=== PATIENT | female | born 1950 | race Caucasian/White ===

== ENCOUNTER 2019-08-02 09:14 | Outpatient (CLI) | payer MEDICARE, OTHER, SELFPAY ==
--- NOTE | 2019-08-02 09:22 | MM_ITS ---
WS: [id number] BILATERAL DIGITAL SCREENING MAMMOGRAPHY WITH CAD CLINICAL INFORMATION: SCREENING HISTORY: Screening mammogram. No current complaints. COMPARISON: April 29, 2018 TECHNIQUE: Bilateral CC and MLO views. FINDINGS: Scattered fibroglandular densities bilaterally. No suspicious focal mass, asymmetry, calcifications, or architectural distortion. No evidence of malignancy. Stable intramammary lymph nodes upper outer r ight breast. MM/[place] [id number] IMPRESSION: BI-RADS: 2-Benign FOLLOW UP: 1 Year Follow-up Recommend return to annual screening mammography.
== END 2019-08-02 09:15 | disposition home or self-care (01) ==
LOC: RADSHAW 09:16
PROVIDERS: PCP Electrodiagnostic Medicine; Visit Provider Electrodiagnostic Medicine
DX: Z12.31 Encounter for screening mammogram for malignant neoplasm of breast (principal)
CPT/HCPCS: 77067

== ENCOUNTER 2019-08-19 13:17 | Outpatient (CLI) | payer MEDICARE, OTHER, SELFPAY ==
--- NOTE | 2019-08-19 13:25 | XRR_ITS ---
PROCEDURE INFORMATION: Exam: XR Left Foot Complete Exam date and time: 08/19/2019 1:35 PM Age: 69 years old Clinical indication: Pain; Foot; Left; Additional info: Pain in joint involving ankle and foot TECHNIQUE: Imaging protocol: XR Left foot. Views: 3 or more views. COMPARISON: CR Foot 3 views, LEFT* [id number] 01/01/2016 1:31 PM FINDINGS: Bones/joints: There is a chronic healed fracture deformity proximal shaft 5th metatarsal. The examination is otherwise negative for bone abnormality. Soft tissues: Soft tissue edema is seen in the dorsal aspect of the left foot. XR/XR foot LT min 3V* [id number] IMPRESSION: 1. Healed fracture deformity 5th metatarsal 2. Soft tissue edema dorsal foot 3. Otherwise No acute findings.
== END 2019-08-19 13:18 | disposition home or self-care (01) ==
LOC: RADWPI 13:21
PROVIDERS: Family Provider Electrodiagnostic Medicine; PCP Electrodiagnostic Medicine; Visit Provider Electrodiagnostic Medicine
DX: M25.572 Pain in left ankle and joints of left foot (principal); M79.672 Pain in left foot; Z87.81 Personal history of (healed) traumatic fracture; R60.9 Edema, unspecified
CPT/HCPCS: 73630

== ENCOUNTER 2019-12-21 11:52 | Outpatient (CLI) | payer MEDICARE, OTHER, SELFPAY ==
--- NOTE | 2019-12-21 12:00 | CT_ITS ---
WS: [id number] CT scan of the abdomen and pelvis with Oral and IV contrast. Additional two-dimensional coronal and s agittal reconstruction was performed. 12/21/2019 Clinical Data: DIARRHEA Comparison: CT abdomen and pelvis, 09/03/2006. DLP: 1122.[address] scans at [facility] use at least one of these dose optimization techniques: automat ed exposure control; mA and/or kV adjustment per patient size (includes targeted exams where dose is matched to clinical indication); or iterative reconstruction. Findings: The lower lungs show no nodules, masses or effusions. The liver, spleen, adrenal glands and pancreas are normal. There is a small cyst in the anterior asp ect of the left lobe unchanged. There are clips in the gallbladder fossa from cholecystectomy. There is a probable cholecystectomy clip seen in the right anterior abdomen which is unchanged from 13 year s ago. The kidneys show equal bilateral contrast excretion with 2 small right renal cortical cyst but none o n the left. No renal masses, cysts or hydronephrosis can be seen. The abdominal aorta is normal in si ze. No appendicitis or diverticulitis is seen. Oral contrast is in the stomach, small bowel and colon, an d there is no bowel dilatation. No abscess, adenopathy, ascites, mass, obstruction or free air is see n. The bladder is unremarkable. The uterus is absent. No inguinal hernia is seen. The bones of the lower thorax, lumbar spine, pelvis, and hips show osteoarthritic change and degenera tive disc disease in the mid lumbar spine.. CT/CT abdomen pelvis w con* [id number] Impression: Negative for acute intra-abdominal or pelvic abnormalities.
[2019-12-21] MEDS: iohexol 300 mg/mL 50 mL Btl PO (12:22)
[2019-12-21] MEDS: iohexol 300 mg/mL 100 mL Btl IV (13:54)
== END 2019-12-21 11:53 | disposition home or self-care (01) ==
LOC: RADWPI 11:56
PROVIDERS: PCP Electrodiagnostic Medicine; Visit Provider Electrodiagnostic Medicine
DX: R19.7 Diarrhea, unspecified (principal); M06.9 Rheumatoid arthritis, unspecified; E03.9 Hypothyroidism, unspecified; M81.0 Age-related osteoporosis without current pathological fracture
CPT/HCPCS: 74177; Q9967

== ENCOUNTER 2019-12-28 10:20 | Emergency (ER) | payer MEDICARE, OTHER, SELFPAY ==
[2019-12-28 10:28] VITALS: BP 137/85; PULSE 100; RESP 18; TEMP 36.2; O2SAT 98; BMI 25.9
--- NOTE | 2019-12-28 10:41 | W.ED.NAVMDI ---
HPI - Nausea/Vomiting/Diarrhea General: Chief complaint: Nausea/Vomiting/Diarrhea Stated complaint: CONSTANT DIARRHEA, WEAK Time Seen by Provider: 12/28/19 10:28 History of Present Illness: HPI Narrative: Patient is a 69-year-old female comes to the ED with diarrhea, fatigue and generalized weakness. Patient says she has been having constant diarrhea for the past 2 weeks. She says that she goes almost every hour. Stool is described as sometimes yellow or brown and liquidy. Denies any red blood or black stools. Patient says she was having diarrhea back in October as well and it lasted all the way till the end of November. She says she had a week of normal stools and now for the past 2 weeks she is having diarrhea again. She has not been taking any antibiotics recently. She is seeing her PCP multiple times and they are unable to determine what is going on. CT of abdomen was performed on December 20 and it showed no acute findings. She says whenever she eats or drinks anything it goes right through her. She has not been eating and drinking as much due to the diarrhea. Denies any fever, chills, acid reflux, nausea, vomiting, abdominal pain, dysuria or hematuria. Patient has taken Imodium and that has not helped symptoms. She says she just feels fatigued full body weakness. She says she has lost approximately 14 pounds since October. Associated nausea: No Associated symtoms: Reports fatigue; Denies change in vision, chest pain, dysuria, headache(s), nausea or palpitations Review of Systems Const: Reports: change in weight (Lost 14 pounds since October), fatigue and other (Generalized weakness); Denies: fever(s) or chills Eyes: Denies: change in vision or eye discomfort ENMT: Denies: throat pain, odynophagia, nasal discharge or nasal congestion Card: Denies: chest pain, palpitations, edema, swelling of feet/ankles, dyspnea on exertion or orthopnea Resp: Denies: dyspnea, productive cough or non-productive cough GI: Reports: diarrhea; Denies: abdominal pain, nausea, vomiting, constipation or hematochezia : Denies: flank pain, dysuria or hematuria Musc: Denies: neck pain, back pain or extremity swelling Skin/Breast: Denies: rash or new lesions Neuro: Denies: headache(s), numbness in extremities or weakness in extremities Physical Exam Const: COMMON NORMALS: no acute distress, patient oriented x3 and alert GENERAL APPEARANCE: cooperative and comfortable HENMT: COMMON NORMALS: normocephalic HEAD & SCALP: normocephalic MOUTH: Normal oral and palatal mucosa present THROAT: posterior oropharynx normal and uvula midline Eye: COMMON NORMALS: Equal, round and reactive pupils present PUPIL: Yes Equal, round and reactive pupils present Neck/C-Spine: COMMON NORMALS: supple GENERAL: Yes normal visual inspection Resp: COMMON NORMALS: normal respiratory effort, No retractions, No use of accessory muscles and clear to auscultation bilaterally AUSCULTATION: clear to auscultation bilaterally Cardio: COMMON NORMALS: regular rate, regular rhythm, S1 normal heart sound present, S2 normal heart sound present, No gallops present (Cardio), No clicks present (Cardio), No murmurs present (Cardio) and Peripheral pulses 2+ throughout RATE: regular rate RHYTHM: regular rhythm HEART SOUNDS: S1 normal heart sound present and S2 normal heart sound present PERIPHERAL PULSES: Peripheral pulses 2+ throughout GI: COMMON NORMALS: Normal to inspection, nondistended, normoactive bowel sounds present, Soft to palpation, non-tender and no masses PALPATION: Yes Soft to palpation : COMMON NORMALS: Yes no CVA tenderness BLADDER/KIDNEY EXAM: Yes no CVA tenderness Back/Pelvis: COMMON NORMALS: no CVA tenderness Extremity: COMMON NORMALS: normal to inspection and no pedal edema Neuro: COMMON NORMALS: patient oriented x3 and moves all extremities SENSORIUM/ORIENTATION: Yes alert Skin: GENERAL SKIN EXAM: dry skin Course Reevaluation(s): Reevaluation #1: After patient received IV fluids and IV potassium she stated she was feeling a lot better had more energy. Vital Signs: Vital signs: Vital Signs Temperature 97.2 F L 12/28/19 10:28 Pulse Rate 113 H 12/28/19 14:50 Respiratory Rate 18 12/28/19 14:50 Blood Pressure 123/73 12/28/19 14:50 Pulse Oximetry 94 12/28/19 14:50 MDM - Nausea/Vomiting/Diarrhea MDM Narrative: Medical decision making narrative: Patient is a 69-year-old female who comes to the ED with diarrhea and fatigue. Symptoms started back in October. She seen her PCP multiple times for this and currently PCP has patient set up to see GI specialist. Here in the ED labs were performed patient had a potassium of 2.9. EKG showed normal sinus rhythm, [address] segment elevation or depression seen. Patient left a stool sample and stool Hemoccult test was positive and lactoferrin test positive. C. difficile, parasite and enteric panel pending. She was given IV fluids and IV potassium and her fatigue symptoms improved. I contacted lab and they told me the results for the pending tests were going to take up to 24 hours. Patient was discharged and put on Flagyl and Medrol Dosepak. She was told to follow-up with her PCP in 5 to 7 days to get her potassium level rechecked. Go to her GI specialist appointment as scheduled. Return to ED precautions given. I told her that [facility] [place] call with lab results. Patient understood and agreed with plan. Lab Data: Attestation: I reviewed the patient's lab results. Labs: Lab Results 12/28/19 12/28/19 12/28/19 Range/Units 10:49 10:49 11:40 WBC 9.4 (4.0-10.0) 10^3/ uL RBC 4.67 (4.1-5.3) 10^6/u L Hgb 13.3 (11.5-15.3) g/dL Hct 40.4 (37.0-47.0) % MCV 86.5 (81-99) fL MCH 28.5 (28.0-34.0) pg MCHC 32.9 (30.0-36.0) g/dL RDW 13.2 (12.1-15.1) % Plt Count 232 (130-400) 10^3/c mm MPV 10.0 (7.4-10.4) fL Neut % (Auto) 55.1 % Lymph % (Auto) 28.8 % [place] % (Auto) 12.5 % Eos % (Auto) 2.5 % Baso % (Auto) 0.9 % Neut # (Auto) 5.16 (1.8-7.7) 10^3/u L Lymph # (Auto) 2.7 (0.8-4.8) 10^3/u L [place] # (Auto) 1.2 H (0.2-0.9) 10^3/u L Eos # (Auto) 0.2 (0.0-0.8) 10^3/u L Baso # (Auto) 0.1 (0.0-0.1) 10^3/u L Nucleated RBC % (a uto) 0 % Nucleated RBCs # 0.0 /100WBC Sodium 133 L (136-145) mmol/L Potassium 2.9 L (3.5-5.1) mmol/L Chloride 95 L (98-107) mmol/L Carbon Dioxide 23 (22-29) mmol/L Anion Gap 17.9 (5-19) BUN 7 L (8-23) mg/dL Creatinine 0.8 (0.5-0.9) mg/dL GFR Calculation Not Reportable Glucose 102 (65-115) mg/dL Calculated Osmolal ity 274 L (285-295) mOsm/k g Calcium 10.2 (8.5-10.5) mg/dL Total Bilirubin 0.5 (0.15-1.2) mg/dL AST 20 (0-32) U/L ALT 13 (0-33) U/L Alkaline Phosphata se 84 (35-105) IU/L Total Protein 6.5 L (6.6-8.7) g/dL Albumin 3.7 (3.5-5.2) g/dL Globulin 2.8 (1.3-4.6) g/dL Lipase 37 (13-60) U/L Urine Color Yellow (Yellow) Urine Appearance Sl hazy (CLEAR) Urine pH 5 (5-7) Ur Specific Gravit y 1.010 (1.005-1.030) Urine Protein 1+ H (Negative) Urine Glucose (UA) Norm (Normal) Urine Ketones Negative (Negative) Urine Blood Neg (Negative) Urine Nitrate Negative (Negative) Urine Bilirubin Neg (Negative) Urine Urobilinogen Neg (Negative) mg/dL Ur Leukocyte Tayler ase 1+ H (Negative) Urine RBC None (0-2) /hpf Urine WBC 15-25 H (0-5) /hpf Ur Squamous Epith Cells 10-15 H (0-5) /hpf Amorphous Sediment Not Reportable Urine Bacteria 2+ H (NONE) /hpf Hyaline Casts 0-4 H /lpf Urine Mucus 2+ /hpf EKG Data^: EKG 1: Attestation: I personally reviewed and interpreted this EKG as follows: EKG interpretation date: 12/28/19 Interpretation: Normal sinus rhythm, 84 bpm, no ST segment elevation or depression seen. Flattened T waves present. Discharge Plan Discharge Patient Disposition: Home Clinical Impression: Gastroenteritis Diarrhea Qualifiers: Diarrhea type: presumed infectious Qualified Code(s): R19.7 - Diarrhea, unspecified Condition: Stable Prescriptions: New Flagyl 500 mg tablet 500 mg PO TID 10 Days Qty: 30 RF: 0 ondansetron 4 mg tablet,disintegrating 4 mg PO Q8H Qty: 10 RF: 0 Medrol (Kenny) 4 mg tablets,dose pack See Rx Instructions .ROUTE .COMPLEX Qty: 21 RF: 0 No Action leflunomide 20 mg tablet 20 mg PO DAILY Qty: 30 RF: 2 alendronate 70 mg tablet 70 mg PO .once weekly Qty: 4 RF: 11 levothyroxine 25 mcg tablet 25 mcg PO DAILY RF: 0 lisinopril 10 mg tablet 10 mg PO DAILY RF: 0 Humira Pen 40 mg/0.8 mL pen injector kit 40 mg SUBCUT Q14D RF: 0 multivitamin Tablet 1 tab PO DAILY RF: 0 amlodipine 5 mg tablet 5 mg PO DAILY RF: 0 Discharge Orders: Discharge Order (Routine); Ordered 12/28/19 Ordered By: Alexey Machuca Referrals: Jamal Lay DO [Primary Care Provider] - Discharge Diet: Regular Discharge Activity: Increase activity as tolerated Patient Instructions: Diarrhea - Adult Activity Restrictions/Additional Instructions: Follow-up with medical provider as directed in 5 to 7 days. White blood cell count 9.4 and hemoglobin 13.3 potassium 2.9 and you were given IV potassium while here in the ED. Have potassium levels checked at next appointment. It stool lactoferrin was positive, occult stool blood test positive, stool C. difficile lab pending, parasite and bacterial stool panel lab pending as well. All results should be back tomorrow. Lab will notify you of any positive results. Take medications as prescribed. Return to the ER or your medical provider if condition worsens. Please read and understand discharge instructions. If any questions, please ask. Coding Level of Care Code ED Business Programmer for Chg Fwd Exam Comprehensive
[2019-12-28 11:05] LABS: Basophils # 0.1 10^3/uL (0.0-0.1); Basophils % 0.9 %; Eosinophils # 0.2 10^3/uL (0.0-0.8); Eosinophils % 2.5 %; Hematocrit 40.4 % (37.0-47.0); Hemoglobin 13.3 g/dL (11.5-15.3); Lymphocytes # 2.7 10^3/uL (0.8-4.8); Lymphocytes % 28.8 %; Mean Corpuscular HGB Conc 32.9 g/dL (30.0-36.0); Mean Corpuscular Hemoglobin 28.5 pg (28.0-34.0); Mean Corpuscular Volume 86.5 fL (81-99); Monocytes # 1.2 10^3/uL (0.2-0.9); Monocytes % 12.5 %; Neutrophils # 5.16 10^3/uL (1.8-7.7); Neutrophils % 55.1 %; Nucleated Red Blood Cells % 0 %; Platelet Count 232 10^3/cmm (130-400); Red Blood Count 4.67 10^6/uL (4.1-5.3); Red Cell Distribution Width 13.2 % (12.1-15.1); White Blood Count 9.4 10^3/uL (4.0-10.0)
[2019-12-28 11:18] LABS: Alanine Aminotransferase 13 U/L (0-33); Albumin Level 3.7 g/dL (3.5-5.2); Alkaline Phosphatase 84 IU/L (35-105); Anion Gap 17.9 (5-19); Aspartate Amino Transferase 20 U/L (0-32); Blood Urea Nitrogen 7 mg/dL (8-23); Calcium 10.2 mg/dL (8.5-10.5); Carbon Dioxide 23 mmol/L (22-29); Chloride 95 mmol/L (98-107); Globulin 2.8 g/dL (1.3-4.6); Glucose 102 mg/dL (65-115); Lipase 37 U/L (13-60); Osmolality Calculated 274 mOsm/kg (285-295); Sodium 133 mmol/L (136-145); Total Bilirubin 0.5 mg/dL (0.15-1.2); Total Protein 6.5 g/dL (6.6-8.7)
[2019-12-28 11:21] LABS: Potassium 2.9 mmol/L (3.5-5.1)
--- NOTE | 2019-12-28 11:23 | ECG_ITS ---
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 Measurements Intervals [place] Rate: 84 P: 67 OK: 157 QRS: -19 QRSD: 100 T: 117 QT: 391 QTc: 464 Interpretive Statements SINUS RHYTHM NONSPECIFIC ST & T-WAVE ABNORMALITY No previous ECG available for comparison Electronically Signed On 12-28-2019 21:41:10 DIRECTOR GROUP SALES by Tiffany Graf M.D. [email or web address].[employer]/store/NU/[id number] f
[2019-12-28] MEDS: sodium chloride 0.9% 1,000 ML 999 ML IV (11:43)
[2019-12-28] MEDS: potassium chloride premix 100 ML 50 MEQ IV (11:43)
[2019-12-28 12:25] VITALS: BP 125/77; PULSE 76; RESP 16; O2SAT 97
[2019-12-28 12:43] LABS: Bilirubin Urine Neg (Negative); Blood Urine Neg (Negative); Glucose Urine UA Norm (Normal); Ketones Urine Negative (Negative); Leukocyte Esterase Urine 1+ (Negative); Nitrate Urine Negative (Negative); Protein Urine 1+ (Negative); Urine Appearance SL Hazy (CLEAR); Urine Color Yellow (Yellow); Urobilinogen Urine Neg (Negative); pH Urine 5 (5-7)
[2019-12-28 12:44] LABS: Bacteria Urine 2+ /hpf; Mucus Urine 2+ /hpf; WBC Urine 15-25 /hpf (0-5)
[2019-12-28 12:45] LABS: Add Urine Culture? No; Hyaline Casts Urine 0-4 /lpf
[2019-12-28 13:19] VITALS: BP 130/79; PULSE 94; RESP 15; O2SAT 96
[2019-12-28 13:30] VITALS: BP 109/73; PULSE 79; RESP 14; O2SAT 97
[2019-12-28 14:13] VITALS: BP 133/76; PULSE 83; RESP 16; O2SAT 97
[2019-12-28 14:50] VITALS: BP 123/73; PULSE 113; RESP 18; O2SAT 94
== END 2019-12-28 14:50 | disposition home or self-care (01) ==
PROVIDERS: Emergency Provider Physician Assistant; PCP Electrodiagnostic Medicine
DX: K52.9 Noninfective gastroenteritis and colitis, unspecified (principal)
CPT/HCPCS: 12345; 80053; 81001; 82274; 83630; 83690; 85025; 87040; 87493; 87506; 93005; 96365; 96366; 99282; 99284; J3480; J7030

== ENCOUNTER 2020-01-31 10:55 | Emergency (ER) | payer MEDICARE, OTHER, SELFPAY ==
[2020-01-31 11:13] VITALS: BP 101/69; PULSE 102; RESP 20; TEMP 36.4; O2SAT 98; BMI 24.5
--- NOTE | 2020-01-31 11:44 | XRR_ITS ---
PROCEDURE INFORMATION: Exam: XR Chest, 1 View Exam date and time: 01/31/2020 11:47 AM Age: 69 years old Clinical indication: Prior surgery; Surgery type: Gb; Patient HX: Weakness, n/v had a colonoscopy recently; Additional info: Syncope TECHNIQUE: Imaging protocol: XR of the chest Views: 1 view. COMPARISON: CR Chest 2 views* [id number] 10/01/2016 12:57 PM FINDINGS: Lungs: Unremarkable. No consolidation. Pleural space: Unremarkable. No pleural effusion. No pneumothorax. Heart/Mediastinum: Unremarkable. No cardiomegaly. Bones/joints: Unremarkable. XR/XR chest 1V portable [id number] IMPRESSION: No acute findings.
--- NOTE | 2020-01-31 13:44 | ECG_ITS ---
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 Measurements Intervals [place] Rate: 80 P: 68 AR: 157 QRS: -37 QRSD: 102 T: 51 QT: 374 QTc: 434 Interpretive Statements SINUS RHYTHM LEFT AXIS DEVIATION [QRS AXIS < -30] SEPTAL MYOCARDIAL INFARCTION , OF INDETERMINATE AGE [40+ ms Q WAVE IN V1/V2] Compared to ECG 01/31/2020 12:36:20 Myocardial infarct finding now present T-wave abnormality no longer present Electronically Signed On 01-31-2020 20:50:30 LICENSED MARRIAGE AND FAMILY THERAPIST by Tiffany Graf M.D. [id number] f
--- NOTE | 2020-01-31 14:16 | W.ED.SYNCOPE ---
HPI - Syncope General: Chief Complaint: Syncope Stated Complaint: Dehydrated/N,V Time Seen by Provider: 01/31/20 14:09 History of Present Illness: HPI narrative: 69-year-old female presents to the emergency room with chronic diarrhea for the last couple of weeks. She evidently was seen by Last week at [facility]. Today she had a syncopal episode at home. She is still taking her blood medication as well. MD complaint: almost passed out and collapsed Onset (ago): hour(s) Prodromal symptoms: lightheaded and nausea/vomiting Witnessed: No Context: during exertion and standing up Injuries sustained associated with event: none Associated symptoms: Reports abdominal pain (Cramping), lightheadedness, nausea and weakness; Deny chest pain, fever(s), headache(s), short of breath or vertigo Treatments prior to arrival: medication (Imodium) Review of Systems Const: Denies: fever(s) ENMT: Denies: throat pain, ear or mastoid pain, nasal discharge or nasal congestion Card: Reports: lightheadedness; Denies: chest pain Resp: Denies: dyspnea, productive cough or non-productive cough GI: Reports: abdominal pain (Cramping) and nausea : Denies: flank pain, difficulty voiding, dysuria, urinary frequency or urinary urgency Skin/Breast: Denies: rash or pruritus Neuro: Denies: headache(s) or vertigo Physical Exam Const: COMMON NORMALS: no acute distress GENERAL APPEARANCE: cooperative and comfortable ORIENTATION/CONSCIOUSNESS: Yes awake, Yes oriented to person, Yes oriented to place and Yes oriented to time HENMT: COMMON NORMALS: normocephalic, atraumatic and hearing grossly normal bilaterally HEAD & SCALP: normocephalic and atraumatic Eye: COMMON NORMALS: Equal, round and reactive pupils present, EOMs intact bilaterally, conjunctivae normal and no scleral icterus CONJUNCTIVA: Yes conjunctivae normal PUPIL: Yes Equal, round and reactive pupils present Neck/C-Spine: COMMON NORMALS: full ROM, no lymphadenopathy, supple and no JVD Lymph: LYMPHATIC: no lymphadenopathy noted and no lymphedema noted Resp: COMMON NORMALS: normal respiratory effort, No retractions, No use of accessory muscles and clear to auscultation bilaterally AUSCULTATION: clear to auscultation bilaterally Cardio: COMMON NORMALS: no JVD, regular rate, regular rhythm and No murmurs present (Cardio) RATE: regular rate RHYTHM: regular rhythm GI: COMMON NORMALS: Soft to palpation and No hepatosplenomegaly present AUSCULTATION: Yes normoactive bowel sounds PALPATION: Yes Soft to palpation, No Tenderness to palpation present (GI), No Guarding due to palpation present (GI) and Yes No hepatosplenomegaly present Extremity: COMMON NORMALS: normal to inspection, capillary refill normal, no clubbing, cyanosis or edema, no calf tenderness and no pedal edema Neuro: SENSORIUM/ORIENTATION: Yes oriented to person, Yes oriented to place and Yes oriented to time Skin: COMMON NORMALS: no rashes or lesions noted GENERAL SKIN EXAM: no rashes or lesions noted Course Vital Signs: Vital signs: Vital Signs Temperature 97.5 F L 01/31/20 11:13 Pulse Rate 109 H 01/31/20 16:08 Respiratory Rate 17 01/31/20 16:08 Blood Pressure 101/69 01/31/20 11:13 Pulse Oximetry 95 01/31/20 16:08 MDM - Syncope MDM Narrative: Medical decision making narrative: Proved with fluids. We will go ahead and discharge her home with Zofran to use as needed clear liquid diet. She has had extensive work-up outside ER for this over the last several months including colonoscopy and previous CTs her abdominal exam today is rather benign we did not repeat CTs instead just treated her more acute problems. Encourage her to follow-up with primary care doctor and with GI is previously seen her in evaluating her chronic diarrhea. Lab Data: Labs: Lab Results 01/31/20 01/31/20 01/31/20 Range/Units 14:27 14:27 14:27 WBC 9.0 (4.0-10.0) 10^3/ uL RBC 4.41 (4.1-5.3) 10^6/u L Hgb 12.6 (11.5-15.3) g/dL Hct 37.9 (37.0-47.0) % MCV 85.9 (81-99) fL MCH 28.6 (28.0-34.0) pg MCHC 33.2 (30.0-36.0) g/dL RDW 14.6 (12.1-15.1) % Plt Count 267 (130-400) 10^3/c mm MPV 11.6 H (7.4-10.4) fL Neut % (Auto) 54.5 % Lymph % (Auto) 32.4 % [place] % (Auto) 11.0 % Eos % (Auto) 0.9 % Baso % (Auto) 0.6 % Neut # (Auto) 4.92 (1.8-7.7) 10^3/u L Lymph # (Auto) 2.9 (0.8-4.8) 10^3/u L [place] # (Auto) 1.0 H (0.2-0.9) 10^3/u L Eos # (Auto) 0.1 (0.0-0.8) 10^3/u L Baso # (Auto) 0.1 (0.0-0.1) 10^3/u L Nucleated RBC % (a uto) 0 % Nucleated RBCs # 0.0 /100WBC PT 13.70 (12.1-14.9) SECO NDS INR 1.01 (0.8-1.2) Sodium Cancelled Potassium Cancelled Chloride Cancelled Carbon Dioxide Cancelled Anion Gap Cancelled BUN Cancelled Creatinine Cancelled GFR Calculation Cancelled Glucose Cancelled Calculated Osmolal ity Cancelled Calcium Cancelled Magnesium Cancelled Total Bilirubin Cancelled AST Cancelled ALT Cancelled Alkaline Phosphata se Cancelled Troponin T Baselin e (0-10) ng/L Total Protein Cancelled Albumin Cancelled Globulin Cancelled 01/31/20 01/31/20 Range/Units 14:27 15:08 WBC (4.0-10.0) 10^3/ uL RBC (4.1-5.3) 10^6/u L Hgb (11.5-15.3) g/dL Hct (37.0-47.0) % MCV (81-99) fL MCH (28.0-34.0) pg MCHC (30.0-36.0) g/dL RDW (12.1-15.1) % Plt Count (130-400) 10^3/c mm MPV (7.4-10.4) fL Neut % (Auto) % Lymph % (Auto) % [place] % (Auto) % Eos % (Auto) % Baso % (Auto) % Neut # (Auto) (1.8-7.7) 10^3/u L Lymph # (Auto) (0.8-4.8) 10^3/u L [place] # (Auto) (0.2-0.9) 10^3/u L Eos # (Auto) (0.0-0.8) 10^3/u L Baso # (Auto) (0.0-0.1) 10^3/u L Nucleated RBC % (a uto) % Nucleated RBCs # /100WBC PT (12.1-14.9) SECO NDS INR (0.8-1.2) Sodium 130 L Potassium 3.2 L Chloride 90 L Carbon Dioxide 26 Anion Gap 17.2 BUN 24 H Creatinine 1.2 H GFR Calculation Not Reportable Glucose 111 Calculated Osmolal ity 275 L Calcium 9.3 Magnesium 1.7 Total Bilirubin 0.5 AST 26 ALT 32 Alkaline Phosphata se 92 Troponin T Baselin e 23 H (0-10) ng/L Total Protein 6.1 L Albumin 3.4 L Globulin 2.7 Discharge Plan Discharge Patient Disposition: Home Clinical Impression: Chronic diarrhea, Nausea & vomiting Condition: Stable Prescriptions: New Zofran 4 mg tablet 4 mg PO Q6H PRN (Reason: nausea and vomiting) Qty: 20 RF: 0 No Action leflunomide 20 mg tablet 20 mg PO DAILY Qty: 30 RF: 2 Vitamin D3 125 mcg (5,000 unit) Tablet 250 mcg PO DAILY@07 RF: 0 alendronate 70 mg tablet 70 mg PO Q7D RF: 0 levothyroxine 25 mcg tablet 25 mcg PO DAILY@07 RF: 0 lisinopril 10 mg tablet 10 mg PO DAILY@07 RF: 0 Humira Pen 40 mg/0.8 mL pen injector kit 40 mg SUBCUT Q14D RF: 0 multivitamin Tablet 1 tab PO DAILY@07 RF: 0 amlodipine 5 mg tablet 5 mg PO DAILY@18 RF: 0 Discharge Orders: Discharge ED (Routine); Ordered 01/31/20 Ordered By: Gerry Milan Referrals: Jamal Lay DO [Primary Care Provider] - Discharge Diet: Clear Liquid Discharge Activity: Increase activity as tolerated Activity Restrictions/Additional Instructions: Aloe up with your primary care doctor and specialist as previously scheduled. Coding Level of Care Code ED Digital Traffic Coordinator for Chg Fwd Exam Comprehensive
[2020-01-31 14:47] LABS: INR 1.01 (0.8-1.2)
[2020-01-31] MEDS: ondansetron 2 mg/ML SDV 2 mL 4 MG IVP (14:54)
[2020-01-31 14:56] LABS: Troponin(5th) Baseline 23 ng/L (0-10)
[2020-01-31 15:02] LABS: Basophils # 0.1 10^3/uL (0.0-0.1); Basophils % 0.6 %; Eosinophils # 0.1 10^3/uL (0.0-0.8); Eosinophils % 0.9 %; Hematocrit 37.9 % (37.0-47.0); Hemoglobin 12.6 g/dL (11.5-15.3); Lymphocytes # 2.9 10^3/uL (0.8-4.8); Lymphocytes % 32.4 %; Mean Corpuscular HGB Conc 33.2 g/dL (30.0-36.0); Mean Corpuscular Hemoglobin 28.6 pg (28.0-34.0); Mean Corpuscular Volume 85.9 fL (81-99); Mean Platelet Volume 11.6 fL (7.4-10.4); Neutrophils # 4.92 10^3/uL (1.8-7.7); Neutrophils % 54.5 %; Nucleated Red Blood Cells % 0 %; Platelet Count 267 10^3/cmm (130-400); Red Blood Count 4.41 10^6/uL (4.1-5.3); Red Cell Distribution Width 14.6 % (12.1-15.1)
[2020-01-31 15:38] LABS: Alanine Aminotransferase 32 U/L (0-33); Albumin Level 3.4 g/dL (3.5-5.2); Alkaline Phosphatase 92 IU/L (35-105); Aspartate Amino Transferase 26 U/L (0-32); Blood Urea Nitrogen 24 mg/dL (8-23); Calcium 9.3 mg/dL (8.5-10.5); Carbon Dioxide 26 mmol/L (22-29); Chloride 90 mmol/L (98-107); Globulin 2.7 g/dL (1.3-4.6); Glucose 111 mg/dL (65-115); Magnesium 1.7 mg/dL (1.7-2.3); Osmolality Calculated 275 mOsm/kg (285-295); Sodium 130 mmol/L (136-145); Total Bilirubin 0.5 mg/dL (0.15-1.2); Total Protein 6.1 g/dL (6.6-8.7)
[2020-01-31 15:42] LABS: Anion Gap 17.2 (5-19); Potassium 3.2 mmol/L (3.5-5.1)
[2020-01-31] MEDS: potassium chloride oral liq 20 mEq/15 mL UDC 40 MEQ PO (16:02)
[2020-01-31 16:08] VITALS: PULSE 109; RESP 17; O2SAT 95
--- NOTE | 2020-01-31 17:44 | ECG_ITS ---
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 Measurements Intervals [place] Rate: 93 P: 62 MO: 148 QRS: -29 QRSD: 97 T: 63 QT: 351 QTc: 438 Interpretive Statements SINUS RHYTHM BORDERLINE LEFT AXIS DEVIATION [QRS AXIS < -20] NONSPECIFIC T-WAVE ABNORMALITY Compared to ECG 12/28/2019 11:46:58 No significant changes Electronically Signed On 01-31-2020 20:53:41 ORCHESTRATOR by Tiffany Graf M.D. [email or web address] medical [email or web address] private hospitalMagor Communications/store/[id number]
== END 2020-01-31 16:09 | disposition home or self-care (01) ==
PROVIDERS: Emergency Medicine; Emergency Provider Family Medicine; PCP Electrodiagnostic Medicine
DX: K52.9 Noninfective gastroenteritis and colitis, unspecified (principal); R11.2 Nausea with vomiting, unspecified; Z79.4 Long term (current) use of insulin
CPT/HCPCS: 12345; 36415; 71045; 80053; 83735; 84484; 85025; 85610; 93005; 96374; 99282; 99283; J2405

== ENCOUNTER 2020-02-17 01:42 | Emergency (ER) | payer MEDICARE, OTHER, SELFPAY ==
[2020-02-17 01:52] VITALS: BP 110/78; PULSE 98; RESP 18; TEMP 36.8; O2SAT 95; BMI 23.7
--- NOTE | 2020-02-17 02:08 | ED_ITS ---
HPI - General Adult General: Chief complaint: General Medical Stated complaint: dehydrated Time Seen by Provider: 02/17/20 01:43 Source: patient Mode of arrival: ambulatory Limitations: no limitations History of Present Illness: HPI narrative: 69-year-old female who states she has ulcerative colitis with a history of chronic diarrhea. She states she is currently on prednisone from her GI physician. She states at times her diarrhea causes her to get dehydrated. She states she has had some slight increased diarrhea and feels dehydrated and states she needs IV fluids. She denies any blood in her stool. Denies any fever. Denies any abdominal pain. Associated symptoms: Deny chest pain, dyspnea, headache(s), nausea, rash or vomiting Review of Systems Const: Denies: fever(s), chills, body aches or change in appetite Eyes: Denies: blurry vision or eye discomfort ENMT: Denies: throat pain or dental pain Card: Denies: chest pain Resp: Denies: dyspnea GI: Reports: diarrhea; Denies: abdominal pain, nausea or vomiting : Denies: dysuria Musc: Denies: neck pain or back pain Skin/Breast: Denies: rash Neuro: Denies: headache(s) Psych: Denies: depression Lenin/Lymph: Denies: easy bruising All/Imm: Denies: urticaria Physical Exam Const: COMMON NORMALS: no acute distress, patient oriented x3 and healthy appearing HENMT: COMMON NORMALS: normocephalic and atraumatic HEAD & SCALP: normocephalic and atraumatic Eye: COMMON NORMALS: Equal, round and reactive pupils present and EOMs intact bilaterally PUPIL: Yes Equal, round and reactive pupils present Neck/C-Spine: COMMON NORMALS: full ROM and supple Chest: COMMONS NORMALS: normal inspection of the chest and normal palpation of entire chest wall Resp: COMMON NORMALS: normal respiratory effort, No retractions, No use of accessory muscles and clear to auscultation bilaterally AUSCULTATION: clear to auscultation bilaterally Cardio: COMMON NORMALS: regular rate, regular rhythm and No murmurs present (Cardio) RATE: regular rate RHYTHM: regular rhythm GI: COMMON NORMALS: Normal to inspection, nondistended, normoactive bowel sounds present, Soft to palpation, non-tender and no masses PALPATION: Yes Soft to palpation Extremity: COMMON NORMALS: normal to inspection and full ROM Neuro: COMMON NORMALS: patient oriented x3, moves all extremities and no focal motor deficits Psych: COMMON NORMALS: mental status grossly normal, Normal thought process present and cooperative THOUGHT PROCESS: Normal thought process present Skin: COMMON NORMALS: no rashes or lesions noted and no wounds GENERAL SKIN EXAM: no rashes or lesions noted Course Vital Signs: Vital signs: Vital Signs Temperature 98.2 F 02/17/20 01:52 Pulse Rate 98 02/17/20 01:52 Respiratory Rate 18 02/17/20 01:52 Blood Pressure 110/78 02/17/20 01:52 Pulse Oximetry 95 02/17/20 01:52 MDM - General Adult MDM Narrative: Medical decision making narrative: Stephon presents with dehydration from diarrhea. She feels much improved after IV fluids. Creatinine has improved and she is able to make urine. She states she would like to go home I feel she is stable for discharge. She is to continue oral intake is return if she has any worsening of her diarrhea. She understands and agrees to plan. Lab Data: Labs: Lab Results 02/17/20 02/17/20 02/17/20 Range/Units 02:07 02:07 03:59 WBC 14.4 H (4.0-10.0) 10^3/ uL RBC 4.11 (4.1-5.3) 10^6/u L Hgb 11.8 (11.5-15.3) g/dL Hct 36.3 L (37.0-47.0) % MCV 88.3 (81-99) fL MCH 28.7 (28.0-34.0) pg MCHC 32.5 (30.0-36.0) g/dL RDW 15.1 (12.1-15.1) % Plt Count 270 (130-400) 10^3/c mm MPV 10.8 H (7.4-10.4) fL Neut % (Auto) 66.6 % Lymph % (Auto) 20.9 % [place] % (Auto) 9.6 % Eos % (Auto) 0.7 % Baso % (Auto) 0.3 % Neut # (Auto) 9.58 H (1.8-7.7) 10^3/u L Lymph # (Auto) 3.0 (0.8-4.8) 10^3/u L [place] # (Auto) 1.4 H (0.2-0.9) 10^3/u L Eos # (Auto) 0.1 (0.0-0.8) 10^3/u L Baso # (Auto) 0.1 (0.0-0.1) 10^3/u L Nucleated RBC % (a uto) 0 % Nucleated RBCs # 0.0 /100WBC Sodium 127 L 130 L (136-145) mmol/L Potassium 3.6 3.7 (3.5-5.1) mmol/L Chloride 90 L 98 (98-107) mmol/L Carbon Dioxide 20 L 20 L (22-29) mmol/L Anion Gap 20.6 H 15.7 (5-19) BUN 56 H 57 H (8-23) mg/dL Creatinine 2.7 H 2.5 H (0.5-0.9) mg/dL GFR Calculation Not Reportable Not Reportable Glucose 112 87 (65-115) mg/dL Calculated Osmolal ity 280 L 285 (285-295) mOsm/k g Calcium 10.3 8.3 L (8.5-10.5) mg/dL Total Bilirubin 0.5 (0.15-1.2) mg/dL AST 24 (0-32) U/L ALT 23 (0-33) U/L Alkaline Phosphata se 87 (35-105) IU/L Total Protein 6.1 L (6.6-8.7) g/dL Albumin 3.4 L (3.5-5.2) g/dL Globulin 2.7 (1.3-4.6) g/dL Lipase 168 H (13-60) U/L Discharge Plan Discharge Patient Disposition: Home Clinical Impression: Diarrhea, Dehydration Condition: Stable Prescriptions: No Action leflunomide 20 mg tablet 20 mg PO DAILY Qty: 30 RF: 2 Vitamin D3 125 mcg (5,000 unit) Tablet 250 mcg PO DAILY@07 RF: 0 alendronate 70 mg tablet 70 mg PO Q7D RF: 0 Zofran 4 mg tablet 4 mg PO Q6H PRN (Reason: nausea and vomiting) Qty: 20 RF: 0 levothyroxine 25 mcg tablet 25 mcg PO DAILY@07 RF: 0 lisinopril 10 mg tablet 10 mg PO DAILY@07 RF: 0 Humira Pen 40 mg/0.8 mL pen injector kit 40 mg SUBCUT Q14D RF: 0 multivitamin Tablet 1 tab PO DAILY@07 RF: 0 amlodipine 5 mg tablet 5 mg PO DAILY@18 RF: 0 Discharge Orders: Discharge ED (Routine); Ordered 02/17/20 Ordered By: Adeline Contreras Referrals: Jamal Lay, [Primary Care Provider] - 1-3 days Discharge Diet: Advance as tolerated Discharge Activity: Resume usual activity Patient Instructions: Chronic Diarrhea (ED) Coding Level of Care Code ED Advanced Clinical Specialist for Chg Fwd Exam Comprehensive
[2020-02-17] MEDS: sodium chloride 0.9% 1,000 ML 999 ML IV (02:16)
[2020-02-17 02:24] LABS: Basophils # 0.1 10^3/uL (0.0-0.1); Basophils % 0.3 %; Eosinophils # 0.1 10^3/uL (0.0-0.8); Eosinophils % 0.7 %; Hematocrit 36.3 % (37.0-47.0); Hemoglobin 11.8 g/dL (11.5-15.3); Lymphocytes % 20.9 %; Mean Corpuscular HGB Conc 32.5 g/dL (30.0-36.0); Mean Corpuscular Hemoglobin 28.7 pg (28.0-34.0); Mean Corpuscular Volume 88.3 fL (81-99); Mean Platelet Volume 10.8 fL (7.4-10.4); Monocytes # 1.4 10^3/uL (0.2-0.9); Monocytes % 9.6 %; Neutrophils # 9.58 10^3/uL (1.8-7.7); Neutrophils % 66.6 %; Nucleated Red Blood Cells % 0 %; Platelet Count 270 10^3/cmm (130-400); Red Blood Count 4.11 10^6/uL (4.1-5.3); Red Cell Distribution Width 15.1 % (12.1-15.1); White Blood Count 14.4 10^3/uL (4.0-10.0)
[2020-02-17 02:43] LABS: Alanine Aminotransferase 23 U/L (0-33); Albumin Level 3.4 g/dL (3.5-5.2); Alkaline Phosphatase 87 IU/L (35-105); Anion Gap 20.6 (5-19); Aspartate Amino Transferase 24 U/L (0-32); Blood Urea Nitrogen 56 mg/dL (8-23); Calcium 10.3 mg/dL (8.5-10.5); Carbon Dioxide 20 mmol/L (22-29); Chloride 90 mmol/L (98-107); Globulin 2.7 g/dL (1.3-4.6); Glucose 112 mg/dL (65-115); Lipase 168 U/L (13-60); Osmolality Calculated 280 mOsm/kg (285-295); Potassium 3.6 mmol/L (3.5-5.1); Sodium 127 mmol/L (136-145); Total Bilirubin 0.5 mg/dL (0.15-1.2); Total Protein 6.1 g/dL (6.6-8.7)
[2020-02-17 04:35] LABS: Anion Gap 15.7 (5-19); Blood Urea Nitrogen 57 mg/dL (8-23); Calcium 8.3 mg/dL (8.5-10.5); Carbon Dioxide 20 mmol/L (22-29); Chloride 98 mmol/L (98-107); Glucose 87 mg/dL (65-115); Osmolality Calculated 285 mOsm/kg (285-295); Potassium 3.7 mmol/L (3.5-5.1); Sodium 130 mmol/L (136-145)
[2020-02-17 05:13] VITALS: BP 124/76; PULSE 84; RESP 18; O2SAT 95
== END 2020-02-17 05:00 | disposition home or self-care (01) ==
PROVIDERS: Emergency Provider Emergency Medicine; PCP Electrodiagnostic Medicine
DX: R19.7 Diarrhea, unspecified (principal); E86.0 Dehydration
CPT/HCPCS: 12345; 80048; 80053; 83690; 85025; 96360; 96361; 99281; 99283; J7030

== ENCOUNTER 2020-04-11 14:21 | Outpatient (CLI) | payer MEDICARE, OTHER, SELFPAY ==
--- NOTE | 2020-04-11 15:38 | XR_ITS ---
WS: [id number] SCREENING DEXA SCAN Pieceable CLINICAL INFORMATION: AGE-RELATED OSTEOPOROSIS COMPARISON: March 17, 2018 FINDINGS: The L1-L4 bone mineral density measures 1.046 g/cm2. This corresponds to a T score score of -1.1 and Z score of 0.6. Left femoral neck bone mineral density measures 0.857 g/cm2. This corresponds to a T score of -1.2 an d Z score of 0.4. Right femoral neck bone mineral density measures 0.937 g/cm2. This corresponds to a T score -0.6of an d Z score of 1.0. Mean femoral neck bone mineral density measures 0.897 g/cm2. This corresponds to a T score of -0.9 an d Z score of 0.7. XR/XR DEXA axial skeleton* [id number] IMPRESSION: Osteopenia. Patient's FRAX calculated 10 year probability for major osteoporotic fracture i s 54.1 % and osteoporotic hip fracture is 28.1%.
== END 2020-04-11 14:22 | disposition home or self-care (01) ==
LOC: RADWPI 14:27
PROVIDERS: PCP Electrodiagnostic Medicine; Visit Provider Internal Medicine Rheumatology
DX: M81.0 Age-related osteoporosis without current pathological fracture (principal); M85.88 Other specified disorders of bone density and structure, other site
CPT/HCPCS: 77080

== ENCOUNTER 2020-06-19 04:19 | Emergency (ER) | payer MEDICARE, OTHER, SELFPAY ==
[2020-06-19 04:30] VITALS: BP 166/87; PULSE 122; RESP 19; TEMP 36.4; O2SAT 99; BMI 22.2
--- NOTE | 2020-06-19 04:39 | CTR_ITS ---
PROCEDURE INFORMATION: Exam: CT Abdomen And Pelvis With Contrast Exam date and time: 06/19/2020 5:44 AM Age: 70 years old Clinical indication: Other: Diarrhea; Abdominal pain; Generalized; Prior surgery; Surgery date: 6+ months; Surgery type: Gb; Additional info: Abd pain diarrhea TECHNIQUE: Imaging protocol: Computed tomography of the abdomen and pelvis with contrast. Radiation optimization: All CT scans at this facility use at least one of these dose optimization techniques: automated exposure control; mA and/or kV adjustment per patient size (includes targeted exams where dose is matched to clinical indication); or iterative reconstruction. Contrast material: VISI; Contrast volume: 95 ml; Contrast route: INTRAVENOUS (IV); COMPARISON: CT abdomen pelvis w con* [id number] 12/21/2019 1:51 PM RADIATION DOSE METRICS: Total DLP (mGy-cm): 843.97 FINDINGS: Lungs: The lung bases are clear. No effusion Liver: There are stable subcentimeter low-attenuation lesions of the liver which are too small to accurately characterize but may represent cysts. Gallbladder and bile ducts: There has been a cholecystectomy. Pancreas: Normal. No ductal dilation. Spleen: Normal. No splenomegaly. Adrenal glands: Normal. No mass. Kidneys and ureters: There is a subcentimeter low-attenuation lesions/lesions, of the right kidney which are too small to accurately characterize by CT. Stomach and bowel: There is mild diffuse colon wall thickening and pericolonic fat stranding. Appendix: No evidence of appendicitis. Intraperitoneal space: Unremarkable. No free air. No significant fluid collection. Vasculature: Unremarkable. No abdominal aortic aneurysm. Lymph nodes: Unremarkable. No enlarged lymph nodes. Urinary bladder: Unremarkable as visualized. Reproductive: Unremarkable as visualized. Bones/joints: Unremarkable. No acute fracture. Soft tissues: Unremarkable. CT/CT abdomen pelvis w con* [id number] IMPRESSION: Diffuse infectious/inflammatory colitis. COMMENTS: Consistent with the [employer]'s Incidental Findings Committee white paper (J Am Lila Radiol 2018): Any incidental renal lesion less than 1 cm or classified as too small to characterize, or any incidental cystic renal lesion characterized as simple-appearing, is likely benign. No follow-up imaging is recommended for these lesions per consensus recommendations based on imaging criteria. Radiation Dose CTDIVOL = (mGy): DLP = 843.97 (mGy-cm)
[2020-06-19 05:03] VITALS: BP 160/90; PULSE 101; RESP 20; O2SAT 94
[2020-06-19] MEDS: ondansetron 2 mg/ML SDV 2 mL 4 MG IVP (05:03)
[2020-06-19] MEDS: sodium chloride 0.9% 1,000 ML 999 ML IV ×2 (05:04→07:16)
[2020-06-19 05:34] LABS: Lactate (Lactic Acid level) 1.8 mmol/L (0.5-2.2)
[2020-06-19 05:35] LABS: Alanine Aminotransferase 11 U/L (0-33); Albumin Level 3.4 g/dL (3.5-5.2); Alkaline Phosphatase 114 IU/L (35-105); Anion Gap 13.8 (5-19); Aspartate Amino Transferase 14 U/L (0-32); Blood Urea Nitrogen 16 mg/dL (8-23); C Reactive Protein 11.8 mg/L (0.0-4.9); Calcium 8.8 mg/dL (8.5-10.5); Carbon Dioxide 22 mmol/L (22-29); Chloride 95 mmol/L (98-107); Glucose 110 mg/dL (65-115); Magnesium 1.9 mg/dL (1.7-2.3); Osmolality Calculated 266 mOsm/kg (285-295); Potassium 3.8 mmol/L (3.5-5.1); Sodium 127 mmol/L (136-145); Total Bilirubin 0.6 mg/dL (0.15-1.2); Total Protein 6.4 g/dL (6.6-8.7)
[2020-06-19] MEDS: iodixanol 320 mg/mL 100mL Btl IV (05:55)
[2020-06-19 05:57] LABS: Basophils # 0.1 10^3/uL (0.0-0.1); Basophils % 0.9 %; Hematocrit 36.2 % (37.0-47.0); Hemoglobin 11.7 g/dL (11.5-15.3); Lymphocytes # 2.8 10^3/uL (0.8-4.8); Lymphocytes % 18.4 %; Mean Corpuscular HGB Conc 32.3 g/dL (30.0-36.0); Mean Corpuscular Hemoglobin 29.8 pg (28.0-34.0); Mean Corpuscular Volume 92.3 fL (81-99); Mean Platelet Volume 9.6 fL (7.4-10.4); Monocytes # 1.4 10^3/uL (0.2-0.9); Monocytes % 8.9 %; Neutrophils # 10.74 10^3/uL (1.8-7.7); Nucleated Red Blood Cells % 0 %; Platelet Count 290 10^3/cmm (130-400); Red Blood Count 3.92 10^6/uL (4.1-5.3); Red Cell Distribution Width 14.8 % (12.1-15.1); White Blood Count 15.1 10^3/uL (4.0-10.0)
[2020-06-19 06:08] LABS: Erythrocyte Sedimentation Rate 40 mm/hr (0-15)
--- NOTE | 2020-06-19 06:27 | W.ED.ABDPA2 ---
HPI - Abdominal Pain General: Chief Complaint: Abdominal Pain Stated Complaint: weakness, unable to eat or drink Time Seen by Provider: 06/19/20 04:37 History of Present Illness: HPI narrative: 70-year-old female with a history of ulcerative colitis presents with several days of diarrhea with increasing frequency and belly pain. She denies any fever or blood in the stool. She states she is gone multiple times per day, has not eaten or drank much in the last 5 days or so because every time she does, she has more bouts of diarrhea. She complains of diffuse belly pain. She notes that this happens when she weans off of her prednisone, and she has had to come to the hospital a couple of times for this. No vomiting. She has been nauseated MD elicited complaint: abdominal pain Pertinent past history: other (Ulcerative colitis) Onset (ago): day(s) Pain Consistency: constant Location: Diffuse Severity: moderate Quality: cramping, stabbing and aching Radiation: other (Diffuse) Exacerbating factors: eating Relieving factors: nothing Associated Symptoms: Reports bloating, change in bowel habits, change in stool character, diarrhea, fecal incontinence, loose stools, nausea and poor appetite; Denies dyspepsia, dysuria, fever(s), heartburn, hematemesis, melena and vomiting Review of Systems Const: Denies: fever(s) Eyes: Denies: change in vision Card: Denies: chest pain or palpitations Resp: Denies: dyspnea or productive cough GI: Reports: nausea, diarrhea, bloating, fecal incontinence, change in bowel habits and change in stool character; Denies: vomiting, hematemesis, heartburn or melena : Denies: dysuria Neuro: Reports: dizziness; Denies: headache(s) Physical Exam Const: COMMON NORMALS: no acute distress, patient oriented x3 and alert GENERAL APPEARANCE: frail appearing (Mild) HENMT: COMMON NORMALS: normocephalic and external ears normal HEAD & SCALP: normocephalic FACE & SINUS: normal facial exam NOSE: Normal nares present EXTERNAL EAR: Yes external ears normal Chest: COMMONS NORMALS: normal inspection of the chest Resp: COMMON NORMALS: normal respiratory effort, No use of accessory muscles and clear to auscultation bilaterally AUSCULTATION: clear to auscultation bilaterally Cardio: COMMON NORMALS: regular rate and regular rhythm RATE: regular rate RHYTHM: regular rhythm GI: COMMON NORMALS: Soft to palpation INSPECTION: Yes normal to inspection AUSCULTATION: Yes Hyperactive bowel sounds present PALPATION: Yes Soft to palpation and Yes Tenderness to palpation present (GI) (diffuse) Neuro: COMMON NORMALS: patient oriented x3 SENSORIUM/ORIENTATION: Yes alert Course Vital Signs: Vital signs: Vital Signs Temperature 97.5 F L 06/19/20 04:30 Pulse Rate 101 H 06/19/20 05:03 Respiratory Rate 20 H 06/19/20 05:03 Blood Pressure 160/90 06/19/20 05:03 Pulse Oximetry 94 06/19/20 05:03 MDM - Abdominal Pain MDM Narrative: Medical decision making narrative: 70-year-old lady with diarrhea, and history of ulcerative colitis. Her white blood cell count is 15.1 with normal differential. Sodium mildly low at 127. Creatinine is 1.0. CT shows a mild diffuse colitis with no perforation or abscess she is afebrile. She is received 1 L and is already feeling better. She is to get 1 more liter. She is to get Solu-Medrol and Flagyl here. 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 She knows to return for any worsening symptoms. Lab Data: Labs: Lab Results 06/19/20 06/19/20 06/19/20 Range/Units 05:05 05:05 05:05 WBC 15.1 H (4.0-10.0) 10^3/ uL RBC 3.92 L (4.1-5.3) 10^6/u L Hgb 11.7 (11.5-15.3) g/dL Hct 36.2 L (37.0-47.0) % MCV 92.3 (81-99) fL MCH 29.8 (28.0-34.0) pg MCHC 32.3 (30.0-36.0) g/dL RDW 14.8 (12.1-15.1) % Plt Count 290 (130-400) 10^3/c mm MPV 9.6 (7.4-10.4) fL Neut % (Auto) 71.0 % Lymph % (Auto) 18.4 % [place] % (Auto) 8.9 % Eos % (Auto) 0.0 % Baso % (Auto) 0.9 % Neut # (Auto) 10.74 H (1.8-7.7) 10^3/u L Lymph # (Auto) 2.8 (0.8-4.8) 10^3/u L [place] # (Auto) 1.4 H (0.2-0.9) 10^3/u L Eos # (Auto) 0.0 (0.0-0.8) 10^3/u L Baso # (Auto) 0.1 (0.0-0.1) 10^3/u L Nucleated RBC % (a uto) 0 % Nucleated RBCs # 0.0 /100WBC ESR 40 H (0-15) mm/hr Sodium 127 L (136-145) mmol/L Potassium 3.8 (3.5-5.1) mmol/L Chloride 95 L (98-107) mmol/L Carbon Dioxide 22 (22-29) mmol/L Anion Gap 13.8 (5-19) BUN 16 (8-23) mg/dL Creatinine 1.0 H (0.5-0.9) mg/dL GFR Calculation Not Reportable Glucose 110 (65-115) mg/dL Calculated Osmolal ity 266 L (285-295) mOsm/k g Lactate (0.5-2.2) mmol/L Calcium 8.8 (8.5-10.5) mg/dL Magnesium 1.9 (1.7-2.3) mg/dL Total Bilirubin 0.6 (0.15-1.2) mg/dL AST 14 (0-32) U/L ALT 11 (0-33) U/L Alkaline Phosphata se 114 H (35-105) IU/L C-Reactive Protein 11.8 H (0.0-4.9) mg/L Total Protein 6.4 L (6.6-8.7) g/dL Albumin 3.4 L (3.5-5.2) g/dL Globulin 3.0 (1.3-4.6) g/dL /11/30 Range/Units 05:05 WBC (4.0-10.0) 10^3/ uL RBC (4.1-5.3) 10^6/u L Hgb (11.5-15.3) g/dL Hct (37.0-47.0) % MCV (81-99) fL MCH (28.0-34.0) pg MCHC (30.0-36.0) g/dL RDW (12.1-15.1) % Plt Count (130-400) 10^3/c mm MPV (7.4-10.4) fL Neut % (Auto) % Lymph % (Auto) % [place] % (Auto) % Eos % (Auto) % Baso % (Auto) % Neut # (Auto) (1.8-7.7) 10^3/u L Lymph # (Auto) (0.8-4.8) 10^3/u L [place] # (Auto) (0.2-0.9) 10^3/u L Eos # (Auto) (0.0-0.8) 10^3/u L Baso # (Auto) (0.0-0.1) 10^3/u L Nucleated RBC % (a uto) % Nucleated RBCs # /100WBC ESR (0-15) mm/hr Sodium (136-145) mmol/L Potassium (3.5-5.1) mmol/L Chloride (98-107) mmol/L Carbon Dioxide (22-29) mmol/L Anion Gap (5-19) BUN (8-23) mg/dL Creatinine (0.5-0.9) mg/dL GFR Calculation Glucose (65-115) mg/dL Calculated Osmolal ity (285-295) mOsm/k g Lactate 1.8 (0.5-2.2) mmol/L Calcium (8.5-10.5) mg/dL Magnesium (1.7-2.3) mg/dL Total Bilirubin (0.15-1.2) mg/dL AST (0-32) U/L ALT (0-33) U/L Alkaline Phosphata se (35-105) IU/L C-Reactive Protein (0.0-4.9) mg/L Total Protein (6.6-8.7) g/dL Albumin (3.5-5.2) g/dL Globulin (1.3-4.6) g/dL Discharge Plan Discharge Patient Disposition: Home Clinical Impression: Colitis Condition: Stable Prescriptions: New prednisone 10 mg tablet See Rx Instructions .ROUTE .COMPLEX Qty: 40 RF: 0 Flagyl 500 mg tablet 500 mg PO Q8H 7 Days Qty: 21 RF: 0 No Action leflunomide 20 mg tablet 20 mg PO DAILY Qty: 30 RF: 2 Vitamin D3 125 mcg (5,000 unit) Tablet 250 mcg PO DAILY@07 RF: 0 alendronate 70 mg tablet 70 mg PO Q7D RF: 0 Zofran 4 mg tablet 4 mg PO Q6H PRN (Reason: nausea and vomiting) Qty: 20 RF: 0 levothyroxine 25 mcg tablet 25 mcg PO DAILY@07 RF: 0 lisinopril 10 mg tablet 10 mg PO DAILY@07 RF: 0 Humira Pen 40 mg/0.8 mL pen injector kit 40 mg SUBCUT Q14D RF: 0 multivitamin Tablet 1 tab PO DAILY@07 RF: 0 amlodipine 5 mg tablet 5 mg PO DAILY@18 RF: 0 Discharge Orders: Discharge ED (Routine); Ordered 06/19/20 Ordered By: Nadeem Lara Referrals: Jamal Lay DO [Primary Care Provider] - 1-3 days Discharge Activity: Resume usual activity Patient Instructions: Ulcerative Colitis (ED) Activity Restrictions/Additional Instructions: Return for fever greater than 100, vomiting liquids or medications, continued diarrhea with weakness despite treatment, other concerning symptoms. Make sure you are drinking plenty of liquids. See your doctor in follow-up. Medications as directed Coding Level of Care Code ED Manager Implementation for Zee Fwd Exam Detailed
[2020-06-19 07:00] VITALS: BP 139/90; PULSE 106; RESP 19; O2SAT 98
[2020-06-19] MEDS: metroNIDAZOLE 500 MG Tablet PO (07:15)
[2020-06-19 08:00] VITALS: BP 164/90; PULSE 93; RESP 18; O2SAT 97
[2020-06-19 08:12] VITALS: BP 164/90; PULSE 92; RESP 18; O2SAT 97
== END 2020-06-19 08:14 | disposition home or self-care (01) ==
PROVIDERS: Emergency Provider Emergency Medicine; PCP Electrodiagnostic Medicine
DX: K52.9 Noninfective gastroenteritis and colitis, unspecified (principal)
CPT/HCPCS: 74177; 80053; 83605; 83735; 85025; 85651; 86140; 96361; 96374; 96375; 99284; J2405; J2930; J7030; Q9967

== ENCOUNTER 2020-06-28 04:11 | Emergency (ER) | payer MEDICARE, OTHER, SELFPAY ==
[2020-06-28 04:18] VITALS: BP 170/117; PULSE 128; RESP 24; TEMP 36.4; O2SAT 98; BMI 22.1
--- NOTE | 2020-06-28 04:26 | ED_ITS ---
HPI - Weakness General: Chief complaint: Weakness Stated complaint: Constant diarrhea Time Seen by Provider: 06/28/20 04:14 Source: patient Mode of arrival: ambulatory Limitations: no limitations History of Present Illness: HPI Narrative: 70-year-old female has a history of ulcerative colitis states she has had chronic diarrhea from this. States she is currently had a flare over the last week and is currently on prednisone. She is tapered down to 40 mg. States that since Friday especially she has had severe diarrhea and is feeling like she is dehydrated. States her specialist 1 to come up and get IV fluids. She states that she has had a decreased appetite. She denies any worsening improving factors. Denies any pain. Denies any blood in her stool. Associated symptoms: Denies chest pain, chills, dysuria, easy bruising, fever(s), headache(s), nausea or vomiting Review of Systems Const: Denies: fever(s), chills, body aches or change in appetite Eyes: Denies: blurry vision or eye discomfort ENMT: Denies: throat pain or dental pain Card: Denies: chest pain Resp: Denies: dyspnea GI: Reports: diarrhea; Denies: abdominal pain, nausea or vomiting : Denies: dysuria Musc: Denies: neck pain or back pain Skin/Breast: Denies: rash Neuro: Reports: weakness in extremities; Denies: headache(s) Psych: Denies: depression [place]/Lymph: Denies: easy bruising All/Imm: Denies: urticaria Physical Exam Const: COMMON NORMALS: no acute distress, patient oriented x3 and healthy appearing HENMT: COMMON NORMALS: normocephalic and atraumatic HEAD & SCALP: normocephalic and atraumatic Eye: COMMON NORMALS: Equal, round and reactive pupils present and EOMs intact bilaterally PUPIL: Yes Equal, round and reactive pupils present Neck/C-Spine: COMMON NORMALS: full ROM and supple Chest: COMMONS NORMALS: normal inspection of the chest and normal palpation of entire chest wall Resp: COMMON NORMALS: normal respiratory effort, No retractions, No use of accessory muscles and clear to auscultation bilaterally AUSCULTATION: clear to auscultation bilaterally Cardio: COMMON NORMALS: regular rhythm and No murmurs present (Cardio) RATE: tachycardic RHYTHM: regular rhythm GI: COMMON NORMALS: Normal to inspection, nondistended, normoactive bowel sounds present, Soft to palpation, non-tender and no masses PALPATION: Yes Soft to palpation Extremity: COMMON NORMALS: normal to inspection and full ROM Neuro: COMMON NORMALS: patient oriented x3, moves all extremities and no focal motor deficits Psych: COMMON NORMALS: mental status grossly normal, Normal thought process present and cooperative THOUGHT PROCESS: Normal thought process present Skin: COMMON NORMALS: no rashes or lesions noted and no wounds GENERAL SKIN EXAM: no rashes or lesions noted Course Vital Signs: Vital signs: Vital Signs Temperature 97.5 F L 06/28/20 04:18 Pulse Rate 90 06/28/20 05:19 Respiratory Rate 17 06/28/20 05:19 Blood Pressure 166/98 06/28/20 05:19 Pulse Oximetry 98 06/28/20 05:19 MDM - Weakness MDM Narrative: Medical decision making narrative: Patient presents here with diarrhea is chronic in nature from her ulcerative colitis. She does have some dehydration but is much improved after IV fluids. She feels improved and is requesting to be discharged. Her heart rate here is improved and is now in the 80s. She does have some hyponatremia that is chronic in nature. Informed her she needs to have her labs redrawn in 2 days for recheck and she is to follow-up with her PCP. She has no signs of infection. She does have an elevated white count but is on chronic steroids. She is return to the ER if worsening. Lab Data: Labs: Lab Results 06/28/20 06/28/20 Range/Units 04:21 04:21 WBC 18.8 H (4.0-10.0) 10^3/ uL RBC 4.47 (4.1-5.3) 10^6/u L Hgb 13.4 (11.5-15.3) g/dL Hct 41.2 (37.0-47.0) % MCV 92.2 (81-99) fL MCH 30.0 (28.0-34.0) pg MCHC 32.5 (30.0-36.0) g/dL RDW 15.0 (12.1-15.1) % Plt Count 420 H (130-400) 10^3/c mm MPV 9.7 (7.4-10.4) fL Neut % (Auto) 56.4 % Lymph % (Auto) 29.5 % [place] % (Auto) 8.2 % Eos % (Auto) 0.2 % Baso % (Auto) 0.6 % Neut # (Auto) 10.62 H (1.8-7.7) 10^3/u L Lymph # (Auto) 5.6 H (0.8-4.8) 10^3/u L [place] # (Auto) 1.6 H (0.2-0.9) 10^3/u L Eos # (Auto) 0.0 (0.0-0.8) 10^3/u L Baso # (Auto) 0.1 (0.0-0.1) 10^3/u L Nucleated RBC % (a uto) 0.2 % Nucleated RBCs # 0.0 /100WBC Sodium 126 L (136-145) mmol/L Potassium 5.1 (3.5-5.1) mmol/L Chloride 93 L (98-107) mmol/L Carbon Dioxide 18 L (22-29) mmol/L Anion Gap 20.1 H (5-19) BUN 25 H (8-23) mg/dL Creatinine 1.2 H (0.5-0.9) mg/dL GFR Calculation Not Reportable Glucose 127 H (65-115) mg/dL Calculated Osmolal ity 268 L (285-295) mOsm/k g Calcium 8.9 (8.5-10.5) mg/dL Total Bilirubin 0.4 (0.15-1.2) mg/dL AST 16 (0-32) U/L ALT 12 (0-33) U/L Alkaline Phosphata se 111 H (35-105) IU/L Total Protein 6.7 (6.6-8.7) g/dL Albumin 3.7 (3.5-5.2) g/dL Globulin 3.0 (1.3-4.6) g/dL Discharge Plan Discharge Patient Disposition: Home Clinical Impression: Hyponatremia Diarrhea Qualifiers: Diarrhea type: unspecified type Qualified Code(s): R19.7 - Diarrhea, unspecified Condition: Stable Prescriptions: No Action leflunomide 20 mg tablet 20 mg PO DAILY Qty: 30 RF: 2 Vitamin D3 125 mcg (5,000 unit) Tablet 250 mcg PO DAILY@07 RF: 0 alendronate 70 mg tablet 70 mg PO Q7D RF: 0 Zofran 4 mg tablet 4 mg PO Q6H PRN (Reason: nausea and vomiting) Qty: 20 RF: 0 prednisone 10 mg tablet See Rx Instructions .ROUTE .COMPLEX Qty: 40 RF: 0 levothyroxine 25 mcg tablet 25 mcg PO DAILY@07 RF: 0 lisinopril 10 mg tablet 10 mg PO DAILY@07 RF: 0 Humira Pen 40 mg/0.8 mL pen injector kit 40 mg SUBCUT Q14D RF: 0 multivitamin Tablet 1 tab PO DAILY@07 RF: 0 amlodipine 5 mg tablet 5 mg PO DAILY@18 RF: 0 Discharge Orders: Discharge ED (Routine); Ordered 06/28/20 Ordered By: Adeline Contreras Referrals: Jamal Lay DO [Primary Care Provider] - 1-3 days Discharge Diet: Advance as tolerated Discharge Activity: Resume usual activity Patient Instructions: Diarrhea - Adult, Hyponatremia (ED) Coding Level of Care Code ED Freight Solicitor for Zee Fwd Exam Comprehensive
[2020-06-28] MEDS: sodium chloride 0.9% 1,000 ML 999 ML IV ×2 (04:30→05:36)
[2020-06-28] MEDS: diphenoxylate/atropine Tablet 1 TAB PO (04:32)
[2020-06-28 04:38] LABS: Basophils # 0.1 10^3/uL (0.0-0.1); Basophils % 0.6 %; Eosinophils % 0.2 %; Hematocrit 41.2 % (37.0-47.0); Hemoglobin 13.4 g/dL (11.5-15.3); Lymphocytes # 5.6 10^3/uL (0.8-4.8); Lymphocytes % 29.5 %; Mean Corpuscular HGB Conc 32.5 g/dL (30.0-36.0); Mean Corpuscular Volume 92.2 fL (81-99); Mean Platelet Volume 9.7 fL (7.4-10.4); Monocytes # 1.6 10^3/uL (0.2-0.9); Monocytes % 8.2 %; Neutrophils # 10.62 10^3/uL (1.8-7.7); Neutrophils % 56.4 %; Nucleated Red Blood Cells % 0.2 %; Platelet Count 420 10^3/cmm (130-400); Red Blood Count 4.47 10^6/uL (4.1-5.3); White Blood Count 18.8 10^3/uL (4.0-10.0)
[2020-06-28 05:06] LABS: Slide Review Slide Review Perform
[2020-06-28 05:12] LABS: Alanine Aminotransferase 12 U/L (0-33); Albumin Level 3.7 g/dL (3.5-5.2); Alkaline Phosphatase 111 IU/L (35-105); Anion Gap 20.1 (5-19); Aspartate Amino Transferase 16 U/L (0-32); Blood Urea Nitrogen 25 mg/dL (8-23); Calcium 8.9 mg/dL (8.5-10.5); Carbon Dioxide 18 mmol/L (22-29); Chloride 93 mmol/L (98-107); Glucose 127 mg/dL (65-115); Osmolality Calculated 268 mOsm/kg (285-295); Potassium 5.1 mmol/L (3.5-5.1); Sodium 126 mmol/L (136-145); Total Bilirubin 0.4 mg/dL (0.15-1.2); Total Protein 6.7 g/dL (6.6-8.7)
[2020-06-28 05:19] VITALS: BP 166/98; PULSE 90; RESP 17; O2SAT 98
[2020-06-28 05:37] VITALS: BP 157/102; PULSE 88; RESP 18; O2SAT 97
[2020-06-28 06:45] VITALS: BP 125/88; PULSE 89; RESP 18; O2SAT 96
== END 2020-06-28 06:46 | disposition home or self-care (01) ==
PROVIDERS: Emergency Provider Emergency Medicine; PCP Electrodiagnostic Medicine
DX: E87.1 Hypo-osmolality and hyponatremia (principal); R19.7 Diarrhea, unspecified
CPT/HCPCS: 80053; 85025; 96360; 96361; 99283; J7030

== ENCOUNTER 2020-08-01 09:58 | Outpatient (CLI) | payer MEDICARE, OTHER, SELFPAY ==
--- NOTE | 2020-08-01 10:03 | MM_ITS ---
WS: [id number] BILATERAL DIGITAL SCREENING MAMMOGRAPHY WITH CAD CLINICAL INFORMATION: SCREENING HISTORY: Screening mammogram. No current complaints. COMPARISON: August 02, 2019 TECHNIQUE: Bilateral CC and MLO views. FINDINGS: Scattered fibroglandular densities bilaterally. No suspicious focal mass, asymmetry, calcifications, or architectural distortion. No evidence of malignancy. MM/[place] [id number] IMPRESSION: BI-RADS: 1-Negative FOLLOW UP: 1 Year Follow-up Recommend return to annual screening mammography.
== END 2020-08-01 09:59 | disposition home or self-care (01) ==
LOC: RADSHAW 10:02
PROVIDERS: PCP Electrodiagnostic Medicine; Visit Provider Electrodiagnostic Medicine
DX: Z12.31 Encounter for screening mammogram for malignant neoplasm of breast (principal)
CPT/HCPCS: 77067

== ENCOUNTER 2020-08-29 15:02 | Outpatient (CLI) | payer MEDICARE, OTHER, SELFPAY ==
--- NOTE | 2020-08-29 15:08 | XR_ITS ---
WS: [id number] CHEST 2 VIEWS HISTORY: DYSPNEA COMPARISON: 01/31/2020 Lungs: Moderate pulmonary hyperexpansion. New since the prior study is mild pulmonary congestion and small bilateral pleural effusions. Subsegmental atelectasis at the lung bases. Cardiac size: Mildly enlarged cardiac silhouette. Mediastinum/Aorta: Normal mediastinum. Bones: Increase in thoracic kyphosis. XR/XR chest 2V* [id number] IMPRESSION: 1. Mild pulmonary venous congestion and small bilateral pleural effusions. 2. No pneumonia. 3. Mild cardiomegaly.
== END 2020-08-29 15:03 | disposition home or self-care (01) ==
LOC: RAD 15:06
PROVIDERS: PCP Electrodiagnostic Medicine; Visit Provider Electrodiagnostic Medicine
DX: R06.00 Dyspnea, unspecified (principal); J20.9 Acute bronchitis, unspecified; I51.7 Cardiomegaly; I87.8 Other specified disorders of veins; J90 Pleural effusion, not elsewhere classified
CPT/HCPCS: 71046

== ENCOUNTER 2020-09-08 08:19 | Outpatient (CLI) | payer MEDICARE, OTHER, SELFPAY ==
--- NOTE | 2020-09-08 08:45 | USCV_ITS ---
Jaja Myrick Age: 70 Gender: F : 1950 Exam Date: 09/08/2020 08:37 Ordering Phys: Jamal Lay DO Technologist: Denise Miranda Exam Location: [facility] [place] Indication: Cardiomegaly, hypertension, sob BP: 150 / 98 HR: 87 Rhythm: Sinus Technical Quality: Good MEASUREMENTS (Male / Female) Normal Values 2D ECHO LV Diastolic Diameter PLAX 5.8 cm 4.2 - 5.9 / 3.9 - 5.3 cm LV Systolic Diameter PLAX 5.5 cm IVS Diastolic Thickness 1.1 cm 0.6 - 1.0 / 0.6 - 0.9 cm IVS Systolic Thickness 1.1 cm LVPW Diastolic Thickness 1.4 cm 0.6 - 1.0 / 0.6 - 0.9 cm LVPW Systolic Thickness 1.2 cm LV Ejection Fraction 2D Teich 11.5 % LV Ejection Fraction MOD 2C 41.6 % LV Ejection Fraction 2C AL 41.8 % LA Diameter 3.3 cm LA Width 2.7 cm LA Height 4.6 cm RA Width 3.1 cm RA Height 4.4 cm Aorta at Sinotubular Diameter 2.7 cm M-MODE Aortic Annulus Diameter 2.8 cm LA Ao Ratio MM 1.1 MV E Point Septal Separation 2.2 cm DOPPLER AV Peak Velocity 97.0 cm/s LVOT Peak Velocity 68.0 cm/s MV Peak Velocity 96.0 cm/s MV Area PHT 3.8 cm squared Mitral E to A Ratio 1.5 MV E' Velocity 52.5 cm/s Mitral E to MV E' Ratio 20.4 Mitral E to LV E' Lateral Ratio 20.8 Mitral E to LV E' Septal Ratio 20.0 PV Peak Velocity 56.0 cm/s RV Acceleration Time 0.1 s RV Ejection Time 0.3 s RV AcT/ET 0.2 FINDINGS Left Ventricle Moderately increased left ventricular cavity size. Severely decreased left ventricular systolic function. Global left ventricular hypokinesis. Left ventricular ejection fraction is estimated at 15 %. Grade II/IV diastolic dysfunction, moderately elevated filling pressures. Right Ventricle The right ventricle is normal in size and function. RVSP could not be calculated due to incomplete tricuspid regurgitation velocity profile. Right Atrium The right atrium is normal in size. Left Atrium The left atrium is normal in size. Mitral Valve Thickened mitral valve. No mitral valve stenosis. Moderate mitral valve regurgitation. Aortic Valve Moderate aortic valve calcification. Mild aortic valve stenosis. Mild aortic valve regurgitation. Tricuspid Valve Structurally normal tricuspid valve without significant stenosis or regurgitation. Pulmonic Valve Structurally normal pulmonic valve without significant stenosis. There is no pulmonic regurgitation. Pericardium Small pericardial effusion. Aorta Normal ascending aorta dimension. CONCLUSIONS 1-Moderately increased left ventricular cavity size. Severely decreased left ventricular systolic function. Global left ventricular hypokinesis. Left ventricular ejection fraction is estimated at 15 %. Grade II/IV diastolic dysfunction, moderately elevated filling pressures. 2-Thickened mitral valve. No mitral valve stenosis. Moderate mitral valve regurgitation. 3-Moderate aortic valve calcification. Mild aortic valve stenosis. Mild aortic valve regurgitation. 4-The right ventricle is normal in size and function. RVSP could not be calculated due to incomplete tricuspid regurgitation velocity profile. 5-Small pericardial effusion. 6-Right atrial pressure is around 5 mm of mercury. 7-When compared to the prior echocardiogram dated 03 November 2017 left ventricle ejection fraction has reduced from normal 65% to severely reduced 15% now. Amie Terrell MD (Electronically Signed) Final Date: 08 September 2020 18:11 S
== END 2020-09-08 08:20 | disposition home or self-care (01) ==
PROVIDERS: PCP Electrodiagnostic Medicine; Visit Provider Electrodiagnostic Medicine
DX: R60.0 Localized edema (principal); I10 Essential (primary) hypertension; I63.9 Cerebral infarction, unspecified; I08.0 Rheumatic disorders of both mitral and aortic valves; I31.3 Pericardial effusion (noninflammatory)
CPT/HCPCS: 93306

== ENCOUNTER 2020-09-08 12:26 | Inpatient (IN) | payer MEDICARE, OTHER, SELFPAY ==
--- NOTE | 2020-09-08 12:39 | XR_ITS ---
WS: [id number] XR chest 1V portable [id number] REASON FOR EXAM: SHORT OF BREATH FINDINGS: Compared to previous examination of 08/29/2020, the interstitial changes in both lower lungs appear to be resolving. Small pleural effusions persist. Moderate cardiomegaly. No additional new lung changes. XR/XR chest 1V portable [id number] IMPRESSION: Presumed resolving congestive heart failure.
--- NOTE | 2020-09-08 12:39 | ECG_ITS ---
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1950 Requested By: Arnaldo Rodriguez Order Number: [id number] Reading MD: ELMO PLUMMER Measurements Intervals [place] Rate: 96 P: 59 RI: 133 QRS: -14 QRSD: 102 T: 151 QT: 382 QTc: 483 Interpretive Statements SINUS RHYTHM POSSIBLE LEFT ATRIAL ENLARGEMENT [-0.1mV P WAVE IN V1/V2] ST DEVIATION AND MODERATE T-WAVE ABNORMALITY, CONSIDER LATERAL ISCHEMIA [-0.1+ mV T WAVE IN I/aVL/V5/V6] Compared to ECG 01/31/2020 14:30:20 T-wave abnormality now present Possible ischemia now present Left-axis deviation no longer present Myocardial infarct finding no longer present Electronically Signed On 09-09-2020 20:29:11 CDT by ELMO PLUMMER [id number] f
[2020-09-08 13:42] VITALS: BP 128/82; PULSE 92; RESP 17; TEMP 37.3; O2SAT 97; BMI 22.1
--- NOTE | 2020-09-08 14:39 | ECG_ITS ---
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 Measurements Intervals [place] Rate: 92 P: 71 AL: 138 QRS: -30 QRSD: 95 T: 135 QT: 397 QTc: 493 Interpretive Statements SINUS RHYTHM POSSIBLE LEFT ATRIAL ENLARGEMENT [-0.1mV P WAVE IN V1/V2] BORDERLINE LEFT AXIS DEVIATION [QRS AXIS < -20] LEFT VENTRICULAR HYPERTROPHY AND ST-T CHANGE [VOLTAGE CRITERIA PLUS ST/T ABNORMALITY] Compared to ECG 01/31/2020 14:30:20 Left ventricular hypertrophy now present ST (T wave) deviation now present Myocardial infarct finding no longer present Electronically Signed On 09-11-2020 0:37:46 CDT by Tiffany Graf M.D. [id number]
--- NOTE | 2020-09-08 16:22 | ED_ITS ---
HPI - Arrhythmia/Palpitations General: Chief Complaint: Arrhythmia/Palpitations Stated Complaint: FLUID ON HEART/SENT BY DR LAY Time Seen by Provider: 09/08/20 16:08 History of Present Illness: HPI narrative: The patient is a 70-year-old female with past medical history ulcerative colitis and rheumatoid arthritis as well as congestive heart failure. She comes to the ER sent by Dr. Lay after she had an echocardiogram this morning and it showed fluid around her heart with an ejection fraction of 12 to 15%. The patient is complaining of increasing shortness of breath for the past week or so. She was started on Lasix 5 days ago by her primary care physician and she says her shortness of breath has improved a bit since that. She was seen at an outpatient GI at [place] yesterday who recommended she go to the ER for evaluation of that however she did not and came home at that time. Today she went to Dr. Lay's office and presents here. She is resting comfortably in the room but does complain of mild shortness of breath with exertion. Associated symptoms: Deny anxiety Review of Systems General: Reports: 10 or more systems reviewed and unremarkable except in HPI and below Const: Denies: fatigue Eyes: Denies: change in vision, blurry vision or eye redness ENMT: Denies: throat pain, swelling of lips/tongue, ear or mastoid pain or nasal congestion Card: Denies: chest pain, palpitations, irregular heart rhythm, edema, dyspnea on exertion or orthopnea Resp: Reports: dyspnea and other (Lower extremity edema 1+ to feet.); Denies: productive cough or non-productive cough GI: Denies: abdominal pain, diarrhea or GI cramping : Denies: flank pain, difficulty voiding, urinary frequency or urinary urgency Musc: Denies: neck pain, back pain, extremity pain, joint pain, joint redness, limited range of motion or muscle weakness Skin/Breast: Denies: rash, pruritus, erythema, skin pain or skin tenderness Neuro: Denies: headache(s), numbness in extremities, weakness in extremities, sensory changes, difficulty walking, dizziness, confusion or Slurred speech present Psych: Denies: anxiety or depression Endo: Denies: polyuria All/Imm: Denies: urticaria, throat swelling or tongue swelling Physical Exam Const: COMMON NORMALS: no acute distress, average body habitus, patient oriented x3, no limitations, healthy appearing, alert and well nourished GENERAL APPEARANCE: cooperative, comfortable, well kempt and well developed ORIENTATION/CONSCIOUSNESS: Yes awake, Yes oriented to person, Yes oriented to place and Yes oriented to time HENMT: COMMON NORMALS: normocephalic, external ears normal and Normal external nose present HEAD & SCALP: normal to inspection and normocephalic NOSE: Normal external nose present EXTERNAL EAR: Yes external ears normal MOUTH: Normal oral and palatal mucosa present THROAT: posterior oropharynx normal Eye: COMMON NORMALS: Equal, round and reactive pupils present and EOMs intact bilaterally GENERAL EYE: appearance normal, both eyes and all related structures PUPIL: Yes Equal, round and reactive pupils present Neck/C-Spine: COMMON NORMALS: full ROM, no lymphadenopathy, no meningeal signs and no JVD GENERAL: Yes normal visual inspection Lymph: LYMPHATIC: no lymphadenopathy noted Chest: COMMONS NORMALS: normal inspection of the chest and normal palpation of entire chest wall Resp: COMMON NORMALS: normal respiratory effort, No retractions, No use of accessory muscles, clear to auscultation bilaterally and percussion normal EFFORT & INSPECTION: Yes able to speak in complete sentences AUSCULTATION: clear to auscultation bilaterally PERCUSSION: percussion normal Cardio: COMMON NORMALS: no JVD, regular rate, regular rhythm, S1 normal heart sound present, S2 normal heart sound present and Peripheral pulses 2+ throughout RATE: regular rate RHYTHM: regular rhythm HEART SOUNDS: S1 normal heart sound present and S2 normal heart sound present PERIPHERAL PULSES: Peripheral pulses 2+ throughout GI: COMMON NORMALS: Normal to inspection, nondistended, normoactive bowel sounds present, Soft to palpation, non-tender and no masses INSPECTION: Yes normal to inspection PALPATION: Yes Soft to palpation : COMMON NORMALS: Yes no CVA tenderness BLADDER/KIDNEY EXAM: Yes no CVA tenderness Back/Pelvis: COMMON NORMALS: no CVA tenderness, thoracic and lumbar spine normal to inspection, no thoracic nor lumbar tenderness and thoraco-lumbar ROM normal Extremity: COMMON NORMALS: normal to inspection, full ROM, capillary refill normal, no joint enlargement and no pedal edema NARRATIVE EXTREMITY EXAM: 1+ edema to feet GENERAL: Yes normal exam except as noted Neuro: COMMON NORMALS: patient oriented x3, CN's II-XII intact bilaterally, moves all extremities, no focal motor deficits, no sensory deficits noted and gait normal SENSORIUM/ORIENTATION: Yes alert, Yes oriented to person, Yes oriented to place and Yes oriented to time MENINGEAL SIGNS: Yes no meningeal signs Psych: COMMON NORMALS: mental status grossly normal, Normal thought process present, cooperative, normal affect and speech normal APPEARANCE: Yes well kempt ATTITUDE: Yes calm SPEECH: Yes normal speech THOUGHT PROCESS: Normal thought process present Skin: COMMON NORMALS: no rashes or lesions noted GENERAL SKIN EXAM: no rashes or lesions noted Course Vital Signs: Vital signs: Vital Signs Temperature 99 F 09/08/20 22:55 Pulse Rate 99 09/08/20 22:55 Respiratory Rate 20 H 09/08/20 22:55 Blood Pressure 122/78 09/08/20 22:55 Pulse Oximetry 95 09/08/20 22:55 MDM - Arrhythmia/Palpitations MDM Narrative: Medical decision making narrative: Patient is a 70-year-old female with congestive heart failure with severely reduced ejection fraction 12 to 15% on echocardiogram done earlier today. She comes to the ER complaining of dyspnea on exertion with mild lower extremity edema. Primary care has given her Lasix as an outpatient for the past 5 days and she continues to be more short of breath. Discussed with Dr. Terrell who recommends keeping her and he will follow. Lab Data: Labs: Lab Results 09/08/20 09/08/20 09/08/20 Range/Units 15:55 15:55 15:55 WBC 5.4 (4.0-10.0) 10^3/ uL RBC 4.18 (4.1-5.3) 10^6/u L Hgb 12.5 (11.5-15.3) g/dL Hct 40.1 (37.0-47.0) % MCV 95.9 (81-99) fL MCH 29.9 (28.0-34.0) pg MCHC 31.2 (30.0-36.0) g/dL RDW 14.5 (12.1-15.1) % Plt Count 149 (130-400) 10^3/c mm MPV 11.7 H (7.4-10.4) fL Neut % (Auto) 50.8 % Lymph % (Auto) 33.1 % Towns % (Auto) 13.4 % Eos % (Auto) 1.7 % Baso % (Auto) 0.6 % Neut # (Auto) 2.76 (1.8-7.7) 10^3/u L Lymph # (Auto) 1.8 (0.8-4.8) 10^3/u L Towns # (Auto) 0.7 (0.2-0.9) 10^3/u L Eos # (Auto) 0.1 (0.0-0.8) 10^3/u L Baso # (Auto) 0.0 (0.0-0.1) 10^3/u L Nucleated RBC % (a uto) 0 % Nucleated RBCs # 0.0 /100WBC Sodium 138 (136-145) mmol/L Potassium 2.8 L* (3.5-5.1) mmol/L Chloride 100 (98-107) mmol/L Carbon Dioxide 27 (22-29) mmol/L Anion Gap 13.8 (5-19) BUN 8 (8-23) mg/dL Creatinine 0.6 (0.5-0.9) mg/dL GFR Calculation Not Reportable Glucose 82 (65-115) mg/dL Calculated Osmolal ity 283 L (285-295) mOsm/k g Calcium 8.7 (8.5-10.5) mg/dL Total Bilirubin 0.7 (0.15-1.2) mg/dL AST 18 (0-32) U/L ALT 12 (0-33) U/L Alkaline Phosphata se 69 (35-105) IU/L Troponin T Baselin e 58 H (0-10) ng/L Troponin T 120 Min barrow (0-10) ng/L Delta Troponin T (0-10) ABS# NT-Pro-B Natriuret Pep [id number] H (0-125) pg/mL Total Protein 5.9 L (6.6-8.7) g/dL Albumin 3.8 (3.5-5.2) g/dL Globulin 2.1 (1.3-4.6) g/dL Urine Color (Yellow) Urine Appearance (CLEAR) Urine pH (5-7) Ur Specific Gravit y (1.005-1.030) Urine Protein (Negative) Urine Glucose (UA) (Normal) Urine Ketones (Negative) Urine Blood (Negative) Urine Nitrate (Negative) Urine Bilirubin (Negative) Urine Urobilinogen (Negative) mg/dL Ur Leukocyte Tayler ase (Negative) 09/08/20 09/08/20 Range/Units 16:50 17:41 WBC (4.0-10.0) 10^3/ uL RBC (4.1-5.3) 10^6/u L Hgb (11.5-15.3) g/dL Hct (37.0-47.0) % MCV (81-99) fL MCH (28.0-34.0) pg MCHC (30.0-36.0) g/dL RDW (12.1-15.1) % Plt Count (130-400) 10^3/c mm MPV (7.4-10.4) fL Neut % (Auto) % Lymph % (Auto) % Towns % (Auto) % Eos % (Auto) % Baso % (Auto) % Neut # (Auto) (1.8-7.7) 10^3/u L Lymph # (Auto) (0.8-4.8) 10^3/u L Towns # (Auto) (0.2-0.9) 10^3/u L Eos # (Auto) (0.0-0.8) 10^3/u L Baso # (Auto) (0.0-0.1) 10^3/u L Nucleated RBC % (a uto) % Nucleated RBCs # /100WBC Sodium (136-145) mmol/L Potassium (3.5-5.1) mmol/L Chloride (98-107) mmol/L Carbon Dioxide (22-29) mmol/L Anion Gap (5-19) BUN (8-23) mg/dL Creatinine (0.5-0.9) mg/dL GFR Calculation Glucose (65-115) mg/dL Calculated Osmolal ity (285-295) mOsm/k g Calcium (8.5-10.5) mg/dL Total Bilirubin (0.15-1.2) mg/dL AST (0-32) U/L ALT (0-33) U/L Alkaline Phosphata se (35-105) IU/L Troponin T Baselin e (0-10) ng/L Troponin T 120 Min barrow 55.47 H (0-10) ng/L Delta Troponin T -2.53 L (0-10) ABS# NT-Pro-B Natriuret Pep (0-125) pg/mL Total Protein (6.6-8.7) g/dL Albumin (3.5-5.2) g/dL Globulin (1.3-4.6) g/dL Urine Color Yellow (Yellow) Urine Appearance Clear (CLEAR) Urine pH 5 (5-7) Ur Specific Gravit y 1.025 (1.005-1.030) Urine Protein Neg (Negative) Urine Glucose (UA) Norm (Normal) Urine Ketones Negative (Negative) Urine Blood Neg (Negative) Urine Nitrate Negative (Negative) Urine Bilirubin Neg (Negative) Urine Urobilinogen Norm (Negative) mg/dL Ur Leukocyte Tayler ase Negative (Negative) Discharge Plan Discharge Patient Disposition: Admitted As Inpatient Admit Provider: Alcira Saavedra Clinical Impression: CHF exacerbation Condition: Stable Coding Level of Care Code ED [employer] for [facility] [employer]
[2020-09-08 16:29] LABS: Troponin(5th) Baseline 58 ng/L (0-10)
[2020-09-08 16:35] LABS: Alanine Aminotransferase 12 U/L (0-33); Albumin Level 3.8 g/dL (3.5-5.2); Alkaline Phosphatase 69 IU/L (35-105); Anion Gap 13.8 (5-19); Aspartate Amino Transferase 18 U/L (0-32); Blood Urea Nitrogen 8 mg/dL (8-23); Calcium 8.7 mg/dL (8.5-10.5); Carbon Dioxide 27 mmol/L (22-29); Chloride 100 mmol/L (98-107); Globulin 2.1 g/dL (1.3-4.6); Glucose 82 mg/dL (65-115); NT Pro B Type Natriuretic Pept 10345 pg/mL (0-125); Osmolality Calculated 283 mOsm/kg (285-295); Sodium 138 mmol/L (136-145); Total Bilirubin 0.7 mg/dL (0.15-1.2); Total Protein 5.9 g/dL (6.6-8.7)
[2020-09-08 16:36] LABS: Basophils % 0.6 %; Eosinophils # 0.1 10^3/uL (0.0-0.8); Eosinophils % 1.7 %; Hematocrit 40.1 % (37.0-47.0); Hemoglobin 12.5 g/dL (11.5-15.3); Lymphocytes # 1.8 10^3/uL (0.8-4.8); Lymphocytes % 33.1 %; Mean Corpuscular HGB Conc 31.2 g/dL (30.0-36.0); Mean Corpuscular Hemoglobin 29.9 pg (28.0-34.0); Mean Corpuscular Volume 95.9 fL (81-99); Mean Platelet Volume 11.7 fL (7.4-10.4); Monocytes # 0.7 10^3/uL (0.2-0.9); Monocytes % 13.4 %; Neutrophils # 2.76 10^3/uL (1.8-7.7); Neutrophils % 50.8 %; Nucleated Red Blood Cells % 0 %; Platelet Count 149 10^3/cmm (130-400); Red Blood Count 4.18 10^6/uL (4.1-5.3); Red Cell Distribution Width 14.5 % (12.1-15.1); White Blood Count 5.4 10^3/uL (4.0-10.0)
[2020-09-08 16:42] LABS: Potassium 2.8 mmol/L (3.5-5.1)
[2020-09-08 16:47] VITALS: BP 130/76
[2020-09-08] MEDS: lidocaine 1% 5 ML in potassium chloride premix 100 ML 25 ML IV (17:24)
[2020-09-08 17:31] LABS: Add Urine Microscopic? NO; Charge for UA Resulting for Rev
[2020-09-08 17:51] LABS: Bilirubin Urine Neg (Negative); Blood Urine Neg (Negative); Glucose Urine UA Norm (Normal); Ketones Urine Negative (Negative); Leukocyte Esterase Urine Negative (Negative); Nitrate Urine Negative (Negative); Protein Urine Neg (Negative); Specific Gravity, Urine 1.025 (1.005-1.030); Urine Appearance Clear (CLEAR); Urine Color Yellow (Yellow); Urobilinogen Urine Norm (Negative); pH Urine 5 (5-7)
[2020-09-08 18:25] LABS: Troponin 5 2HR 55.47 ng/L (0-10)
[2020-09-08 18:32] LABS: Troponin 5 2HR Delta -2.53 ABS# (0-10)
[2020-09-08 18:36] VITALS: BP 144/94; PULSE 99; RESP 16; O2SAT 97
--- NOTE | 2020-09-08 18:39 | ECG_ITS ---
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 Measurements Intervals [place] Rate: 99 P: 71 DE: 147 QRS: -42 QRSD: 96 T: 124 QT: 375 QTc: 481 Interpretive Statements SINUS RHYTHM POSSIBLE LEFT ATRIAL ENLARGEMENT [-0.1mV P WAVE IN V1/V2] MARKED LEFT AXIS DEVIATION [QRS AXIS < -30] NONSPECIFIC ST & T-WAVE ABNORMALITY Compared to ECG 09/08/2020 16:27:41 T-wave abnormality now present Left ventricular hypertrophy no longer present ST (T wave) deviation no longer present Electronically Signed On 09-14-2020 12:42:54 CDT by Tiffany Graf M.D. [id number]
[2020-09-08 22:36] LABS: Troponin 5 6HR 57.87 ng/L (0-10)
[2020-09-08 22:38] LABS: Troponin 5 6HR Delta -0.13 ng/L (0-12)
[2020-09-08 22:39] LABS: Potassium 3.6 mmol/L (3.5-5.1)
[2020-09-08 22:55] VITALS: BP 122/78; PULSE 99; RESP 20; TEMP 37.2; O2SAT 95
[2020-09-08 23:00] VITALS: BP 136/82; PULSE 100; RESP 18; TEMP 36.6; O2SAT 95
--- NOTE | 2020-09-08 23:37 | P.HP_ITS ---
Providers/Chief Complaint Admitting Physician: Alcira Saavedra MD Primary Care Provider: Jamal Lay DO Chief Complaint: FLUID ON HEART/SENT BY DR LAY History of Present Illness Jaja Myrick is a 70 year old female past medical history of rheumatoid arthritis, ulcerative colitis, previously on Humira, recently switched to Xeljanz, stopped in early August, she presents today with 3 weeks of progressively worsening shortness of breath. About 3 weeks ago she was diagnosed with bronchitis by her PCP and was started on inhalers. She does not describe any cough wheezing or fever at that time. Her has also been sick at home with similar complaints at the time. She describes new dyspnea on exertion, unable to walk from bed to bathroom comfortably, orthopnea, unable to lie flat, nocturnal dyspnea which has woken her up from sleep several times on lying flat. Also noted to have lower extremity swelling for which her PCP started her on 20 mg of daily Lasix with which the swelling improved. She was sent for an echocardiogram by her PCP which revealed new systolic ejection fraction of 15%(previously over 60% from 2018). Does not recall any viral respiratory illness in the months prior. She was vaccinated for Covid, completed series in May 2020. Reports being under a lot of stress related to concerns over her elderly and her son. No past history of CAD. No describe chest pain, however on asking specifically feels like there has been a pressure in the center of her chest. Troponin series today is without significant delta's Review of Systems General: Reports: 10 or more systems reviewed and unremarkable except in HPI and below Const: Denies: fever(s), chills or body aches Eyes: Denies: change in vision, blurry vision or photophobia ENMT: Reports: hoarseness; Denies: throat pain, enlarged tonsils, odynophagia or nasal congestion Card: Denies: chest pain, palpitations, irregular heart rhythm, edema, swelling of feet/ankles, lightheadedness, pre-syncope, dyspnea on exertion or orthopnea Resp: Denies: dyspnea, productive cough, non-productive cough, wheezing, stridor, pain on inspiration, change in phlegm color, hemoptysis or chest congestion GI: Denies: abdominal pain, nausea, vomiting, hematemesis, coffee ground emesis, dysphagia, heartburn, diarrhea, constipation, GI cramping, change in stool character, hematochezia or melena : Denies: flank pain, difficulty voiding, dysuria, urinary frequency, uri nary urgency, urinary hesitancy or hematuria Musc: Denies: neck pain, back pain, extremity pain, joint swelling, joint warmth or deformity Neuro: Denies: headache(s), numbness in extremities, weakness in extremities, sensory changes, difficulty walking, frequent falls, dizziness, vertigo, behavioral changes, Slurred speech present or seizure-like activity Psych: Denies: anxiety, depression, suicidal ideation or homicidal ideation Endo: Denies: polyuria, polydipsia, tired all the time, cold intolerance or hot flashes Lenin/Lymph: Denies: easy bruising or easy bleeding Medications/Allergies Home Medications Medication Instructions Recorded Confirmed Last Taken Type levothyroxine 25 mcg PO DAILY@12/28/19 09/08/20 09/08/20 History multivitamin 1 tab PO DAILY@12/28/19 09/08/20 09/08/20 History alendronate 70 mg PO Q7D 01/31/20 09/08/20 09/01/20 History albuterol sulfate 2.5 mg INHALATION Q4H PRN 09/08/20 09/08/20 09/08/20 History furosemide [Lasix] 20 mg PO DAILY@09/08/20 09/08/20 09/08/20 History pantoprazole 40 mg PO DAILY@09/08/20 09/08/20 09/08/20 History potassium chloride 10 meq PO DAILY@09/08/20 09/08/20 09/08/20 History Allergies Allergy/AdvReac Type Severity Reaction Status Date / Time penicillin G Allergy YEAST Verified 06/19/20 04:33 INFECTION PFSH Acute PFSH: Medical History (Updated 09/09/20 @ 08:19 by Alcira Saavedra MD) Ulcerative colitis Vitals/I&O/Wt Last Vital Signs Temp 99 F 09/08/20 22:55 Pulse 99 09/08/20 22:55 Resp 20 H 09/08/20 22:55 BP 122/78 09/08/20 22:55 Pulse Ox 95 09/08/20 22:55 09/08/20 09/08/20 09/09/20 14:59 22:59 06:59 Intake Total 105 / 105 Balance 105 / 105 Weight last 48 hrs Weight 62.142 kg Physical Exam Narrative: EXAM NARRATIVE: General: No acute distress, AO x3 HEENT: PERRLA, pupils bilaterally equal and reactive, pallors not present Chest: Normal vesicular breath sounds, no added sounds, equal good air entry bilaterally CVS: S1-S2 regular, no murmurs, no tachycardia, no gallops, no rubs Abdomen: Soft, nontender, no organomegaly, bowel sounds present Neuro: No focal deficits, no facial deformity, AO x3, power 5/5 in all limbs Extremities: no edema, clubbing. LE varicose veins noted. Data : 09/08/20 15:55 09/08/20 22:05 Attestation for Other Data: I personally reviewed and interpreted the following: Other data: Laboratory Results WBC 5.4 10^3/uL (4.0-10.0) 09/08/20 15:55 RBC 4.18 10^6/uL (4.1-5.3) 09/08/20 15:55 Hgb 12.5 g/dL (11.5-15.3) 09/08/20 15:55 Hct 40.1 % (37.0-47.0) 09/08/20 15:55 MCV 95.9 fL (81-99) 09/08/20 15:55 MCH 29.9 pg (28.0-34.0) 09/08/20 15:55 MCHC 31.2 g/dL (30.0-36.0) 09/08/20 15:55 RDW 14.5 % (12.1-15.1) 09/08/20 15:55 Plt Count 149 10^3/cmm (130-400) 09/08/20 15:55 MPV 11.7 fL (7.4-10.4) H 09/08/20 15:55 Neut % (Auto) 50.8 % 09/08/20 15:55 Lymph % (Auto) 33.1 % 09/08/20 15:55 [place] % (Auto) 13.4 % 09/08/20 15:55 Eos % (Auto) 1.7 % 09/08/20 15:55 Baso % (Auto) 0.6 % 09/08/20 15:55 Neut # (Auto) 2.76 10^3/uL (1.8-7.7) 09/08/20 15:55 Lymph # (Auto) 1.8 10^3/uL (0.8-4.8) 09/08/20 15:55 [place] # (Auto) 0.7 10^3/uL (0.2-0.9) 09/08/20 15:55 Eos # (Auto) 0.1 10^3/uL (0.0-0.8) 09/08/20 15:55 Baso # (Auto) 0.0 10^3/uL (0.0-0.1) 09/08/20 15:55 Nucleated RBC % (auto) 0 % 09/08/20 15:55 Nucleated RBCs # 0.0 /100WBC 09/08/20 15:55 Sodium 138 mmol/L (136-145) 09/08/20 15:55 Potassium 3.6 mmol/L (3.5-5.1) 09/08/20 22:05 Chloride 100 mmol/L (98-107) 09/08/20 15:55 Carbon Dioxide 27 mmol/L (22-29) 09/08/20 15:55 Anion Gap 13.8 (5-19) 09/08/20 15:55 BUN 8 mg/dL (8-23) 09/08/20 15:55 Creatinine 0.6 mg/dL (0.5-0.9) 09/08/20 15:55 GFR Calculation Not Reportable 09/08/20 15:55 Glucose 82 mg/dL (65-115) 09/08/20 15:55 Calculated Osmolality 283 mOsm/kg (285-295) L 09/08/20 15:55 Calcium 8.7 mg/dL (8.5-10.5) 09/08/20 15:55 Total Bilirubin 0.7 mg/dL (0.15-1.2) 09/08/20 15:55 AST 18 U/L (0-32) 09/08/20 15:55 ALT 12 U/L (0-33) 09/08/20 15:55 Alkaline Phosphatase 69 IU/L (35-105) 09/08/20 15:55 Troponin T Baseline 58 ng/L (0-10) H 09/08/20 15:55 Troponin T 120 Minute 55.47 ng/L (0-10) H 09/08/20 17:41 Delta Troponin T -2.53 ABS# (0-10) L 09/08/20 17:41 Troponin T Hi Sens 6Hr 57.87 ng/L (0-10) H 09/08/20 22:05 Troponin T Hi Sens 6Hr Delta -0.13 ng/L (0-12) L 09/08/20 22:05 NT-Pro-B Natriuret Pep 03479 pg/mL (0-125) H 09/08/20 15:55 Total Protein 5.9 g/dL (6.6-8.7) L 09/08/20 15:55 Albumin 3.8 g/dL (3.5-5.2) 09/08/20 15:55 Globulin 2.1 g/dL (1.3-4.6) 09/08/20 15:55 Urine Color Yellow (Yellow) 09/08/20 16:50 Urine Appearance Clear (CLEAR) 09/08/20 16:50 Urine pH 5 (5-7) 09/08/20 16:50 Ur Specific [place] 1.025 (1.005-1.030) 09/08/20 16:50 Urine Protein Neg (Negative) 09/08/20 16:50 Urine Glucose (UA) Norm (Normal) 09/08/20 16:50 Urine Ketones Negative (Negative) 09/08/20 16:50 Urine Blood Neg (Negative) 09/08/20 16:50 Urine Nitrate Negative (Negative) 09/08/20 16:50 Urine Bilirubin Neg (Negative) 09/08/20 16:50 Urine Urobilinogen Norm mg/dL (Negative) 09/08/20 16:50 Ur Leukocyte Esterase Negative (Negative) 09/08/20 16:50 Impressions Chest X-Ray 09/08/20 12:39 IMPRESSION: Presumed resolving congestive heart failure. CONCLUSIONS 1-Moderately increased left ventricular cavity size. Severely decreased left ventricular systolic function. Global left ventricular hypokinesis. Left ventricular ejection fraction is estimated at 15 %. Grade II/IV diastolic dysfunction, moderately elevated filling pressures. 2-Thickened mitral valve. No mitral valve stenosis. Moderate mitral valve regurgitation. 3-Moderate aortic valve calcification. Mild aortic valve stenosis. Mild aortic valve regurgitation. 4-The right ventricle is normal in size and function. RVSP could not be calculated due to incomplete tricuspid regurgitation velocity profile. 5-Small pericardial effusion. 6-Right atrial pressure is around 5 mm of mercury. 7-When compared to the prior echocardiogram dated 03 November 2017 left ventricle ejection fraction has reduced from normal 65% to severely reduced 15% now. A&P Assessment and plan (1) Combined systolic and diastolic heart failure: This is a new diagnosis for the patient Etiology unclear at this point in time May be related to underlying ischemia vs post infectious or stress cardiomyopathy Check TSH , lipid panel, Hba1c Troponins today without significant delta Echocardiogram as above Cardiology consult with Dr. Terrell Lasix 20mg iv q12h ASA 81mg po daily, start lisinopril 5mg po daily, metoprolol 25mg po BID Status: Acute (2) Cardiomyopathy: Status: Acute Attestations Medical Necessity Statement*: new combined heart failure with cardiomyopathy, cardiology consult Coding Level of Care Code Acute Corset Maker for Zee Pablo Diagnoses Combined systolic and diastolic heart failure I50.40 Cardiomyopathy I42.9
[2020-09-08 23:57] VITALS: PULSE 101
[2020-09-09] VITALS (10 sets, daily range): BP systolic 97–114; BP diastolic 65–73; PULSE 71–105; RESP 14–18; TEMP 35.9–36.7; O2SAT 90–95
[2020-09-09 00:25] LABS: SARS Covid-2 Antigen Negative (Negative)
[2020-09-09] MEDS: metoprolol tartrate 25 mg Tablet 12.5 MG PO (01:29)
[2020-09-09] MEDS: enoxaparin 40 mg/0.4 mL Syringe SUBCUT ×2 (01:29→23:02)
[2020-09-09] MEDS: FUROsemide 10 mg/mL SDV 2mL 20 MG IVP (05:44)
[2020-09-09] MEDS: ondansetron 2 mg/ML SDV 2 mL 4 MG IVP (05:48)
[2020-09-09] MEDS: levothyroxine 25 mcg Tablet PO (06:34)
[2020-09-09] MEDS: pantoprazole DR 40 mg Tablet PO (09:08)
[2020-09-09] MEDS: aspirin 81 mg EC Tablet PO (09:08)
--- NOTE | 2020-09-09 09:11 | PM.PN ---
Subjective Subjective: Interval history: Overnight labs and H&P reviewed. No acute interval events. Saturating 92% on room air. Hemodynamics stable. Cardiology consulted Medications: Reviewed: Yes Vitals/I&O/Wt Last Vital Signs Temp 98.0 F 09/09/20 08:00 Pulse 86 09/09/20 08:00 Resp 14 09/09/20 08:00 BP 107/68 09/09/20 08:00 Pulse Ox 92 09/09/20 08:00 09/08/20 09/09/20 09/09/20 22:59 06:59 14:59 Intake Total 105 / 105 Balance 105 / 105 Weight last 48 hrs Weight 62.142 kg Physical Exam Narrative: EXAM NARRATIVE: General: No acute distress, AO x3 HEENT: PERRLA, pupils bilaterally equal and reactive Chest: Normal vesicular breath sounds, no added sounds, equal good air entry bilaterally CVS: S1-S2 regular, no murmurs, no tachycardia, no gallops, no rubs Abdomen: Soft, nontender, no organomegaly, bowel sounds present Neuro: No focal deficits, no facial deformity, AO x3, power 5/5 in all limbs Data : 09/08/20 15:55 09/08/20 22:05 A&P Assessment and plan (1) Combined systolic and diastolic heart failure: Newly diagnosed, because under evaluation May be related to underlying ischemia vs nonischemic causes such as post infectious or stress cardiomyopathy TSH , lipid panel, Hba1c pending at this time Troponins without significant delta Echocardiogram with EF of 15% which is a gross change from previous Cardiology consult with Dr. Terrell Lasix 20mg iv q12h ASA 81mg po daily, start lisinopril 5mg po daily, metoprolol 25mg po BID Status: Acute (2) Cardiomyopathy: Status: Acute Attestations Medical Necessity Statement*: Newly diagnosed cardiomyopathy, started on heart failure regimen, monitor closely hemodynamics with initiation of new medications, cardiology assessment Coding Level of Care Code Acute Resistor Testing Machine Operator for Zee Pablo Diagnoses Combined systolic and diastolic heart failure I50.40 Cardiomyopathy I42.9
[2020-09-09] MEDS: metoprolol tartrate 25 mg Tablet PO (09:13)
[2020-09-09] MEDS: lisinopril 5 mg Tablet PO (09:13)
--- NOTE | 2020-09-09 10:29 | P.CONIM_ITS ---
Providers/Reason For Consult Consulting Physician/Specialty*: Cardiology Reason for Consult*: New onset of heart failure Attending Physician: Filipe Chawla MD Primary Care Provider: Jamal Lay DO History of Present Illness History of Present Illness Jaja Myrick is a 70 year old female past medical history significant for hypothyroidism and GERD rheumatoid arthritis ulcerative colitis was on immunosuppressant including Humira switched to Xeljanz couple months ago in May and now stopped in the early part of August when she suffered from bronchitis for which she was treated with an antibiotic. Patient has been vaccinated fully roughly around April. For the past 2 weeks patient has been noticing especially after the bronchitis worsening of shortness of breath PND orthopnea little weight gain. Echocardiogram was performed by primary care physician on which she was noted to have ejection fraction of 15% and dilated cardiomyopathy. She also has mild aortic valve insufficiency and moderate mitral valve regurgitation possibly due to cavity stretch. Patient was admitted last night for worsening of heart failure symptoms. She was started on IV Lasix. Unfortunately patient's output was not recorded however she is feeling better. Review of Systems General: Reports: 10 or more systems reviewed and unremarkable except in HPI and below Const: Denies: fever(s), chills, body aches or fatigue Eyes: Denies: change in vision, blurry vision, photophobia or eye redness ENMT: Reports: hoarseness; Denies: throat pain, enlarged tonsils, odynophagia, swelling of lips/tongue, ear or mastoid pain or nasal congestion Card: Denies: chest pain, palpitations, irregular heart rhythm, edema, swelling of feet/ankles, lightheadedness, pre-syncope, dyspnea on exertion or orthopnea Resp: Reports: other (Lower extremity edema 1+ to feet.); Denies: dyspnea, productive cough, non-productive cough, wheezing, stridor, pain on inspiration, change in phlegm color, hemoptysis or chest congestion GI: Denies: abdominal pain, nausea, vomiting, hematemesis, coffee ground emesis, dysphagia, heartburn, diarrhea, constipation, GI cramping, change in stool character, hematochezia or melena : Denies: flank pain, difficulty voiding, dysuria, urinary frequency, urinary urgency, urinary hesitancy or hematuria Musc: Denies: neck pain, back pain, extremity pain, joint pain, joint swelling, joint redness, joint warmth, limited range of motion, muscle weakness or deformity Skin/Breast: Denies: rash, pruritus, erythema, skin pain or skin tenderness Neuro: Denies: headache(s), numbness in extremities, weakness in extremities, sensory changes, difficulty walking, frequent falls, dizziness, vertigo, confusion, behavioral changes, Slurred speech present or seizure-like activity Psych: Denies: anxiety, depression, suicidal ideation or homicidal ideation Endo: Denies: polyuria, polydipsia, tired all the time, cold intolerance or hot flashes Lenin/Lymph: Denies: easy bruising or easy bleeding All/Imm: Denies: urticaria, throat swelling or tongue swelling Meds/Allergies Home Medications and Allergies Home Medications Medication Instructions Recorded Confirmed Last Taken Type levothyroxine 25 mcg PO DAILY@12/28/19 09/08/20 09/08/20 History multivitamin 1 tab PO DAILY@12/28/19 09/08/20 09/08/20 History alendronate 70 mg PO Q7D 01/31/20 09/08/20 09/01/20 History albuterol sulfate 2.5 mg INHALATION Q4H PRN 09/08/20 09/08/20 09/08/20 History furosemide [Lasix] 20 mg PO DAILY@09/08/20 09/08/20 09/08/20 History pantoprazole 40 mg PO DAILY@09/08/20 09/08/20 09/08/20 History potassium chloride 10 meq PO DAILY@09/08/20 09/08/20 09/08/20 History Allergies Allergy/AdvReac Type Severity Reaction Status Date / Time penicillin G Allergy YEAST Verified 06/19/20 04:33 INFECTION Current Medications Current Medications Generic Name Dose Route Start Last Admin Trade Name Freq PRN Reason Stop Dose Admin Aspirin 81 mg 09/09/20 09:00 09/09/20 09:08 Aspirin 81 Mg Ec Tablet PO 81 mg DAILY FRANC Administration Enoxaparin Sodium 40 mg 09/08/20 23:57 09/09/20 01:29 Enoxaparin 40 Mg/0.4 Ml Syringe SUBCUT 40 mg Q24H FRANC Administration Furosemide 20 mg 09/08/20 23:57 09/09/20 05:44 Furosemide 10 Mg/Ml Sdv 2ml IVP 20 mg Q12H FRANC Administration Levothyroxine Sodium 25 mcg 09/09/20 07:00 09/09/20 06:34 Levothyroxine 25 Mcg Tablet PO 25 mcg DAILY@07 FRANC Administration Lisinopril 5 mg 09/09/20 09:00 09/09/20 09:13 Lisinopril 5 Mg Tablet PO 5 mg DAILY FRANC Administration Metoprolol Tartrate 25 mg 09/09/20 09:00 09/09/20 09:13 Metoprolol Tartrate 25 Mg Tablet PO 25 mg BID@0900,2100 FRANC Administration Ondansetron HCl 4 mg 09/08/20 23:57 09/09/20 05:48 Ondansetron 2 Mg/Ml Sdv 2 Ml IVP 4 mg Q8H PRN Administration vomiting, or N/V if npo Pantoprazole Sodium 40 mg 09/09/20 09:00 09/09/20 09:[address] 40 Mg Tablet PO 40 mg DAILY FRANC Administration PFSH Acute PFSH: Medical History (Updated 09/09/20 @ 13:05 by Amie Terrell MD) Ulcerative colitis Vitals/I&O/Wt Last Vital Signs Temp 98.0 F 09/09/20 08:00 Pulse 86 09/09/20 08:00 Resp 14 09/09/20 08:00 BP 107/68 09/09/20 08:00 Pulse Ox 92 09/09/20 08:00 09/08/20 09/09/20 09/09/20 22:59 06:59 14:59 Intake Total 105 / 105 Balance 105 / 105 Weight last 48 hrs Weight 137 lb Physical Exam Narrative: EXAM NARRATIVE: GENERAL: Patient is alert, awake and oriented x3. NECK: No jugular vein distension. HEENT: No cyanosis. No icterus. No pallor. HEART: Regular S1 and S2. 2/6 sys murmur, No rub or gallop. LUNGS: Reduced air entry bilaterally. ABDOMEN: Soft, nontender and nondistended. Positive bowel sounds. No guarding, rebound or tenderness. CENTRAL NERVOUS SYSTEM: Grossly nonfocal. EXTREMITIES: Lower extremities without edema bilaterally. A&P Assessment and plan (1) CHF exacerbation: New onset of heart failure with severely depressed LV function ejection fraction by echo 15% possibly secondary to dilated cardiomyopathy nonischemic however would like to rule out ischemia before completely labeling it. At this point we will continue IV diuresis with Lasix 40 mg twice a day and potassium chloride 20 mEq twice a day. Continue beta-preethi MOMO inhibitor. Status: Acute Qualifiers: Heart failure type: systolic Qualified Code(s): I50.23 - Acute on chronic systolic (congestive) heart failure (2) Cardiomyopathy: LV dysfunction with possible nonischemic cardiomyopathy further need to be explored in order to rule out ischemic component with left and right heart cath once euvolemic. Status: Acute Qualifiers: Cardiomyopathy type: dilated Qualified Code(s): I42.0 - Dilated cardiomyopathy (3) Rheumatoid arthritis: As per medicine. Status: Acute Qualifiers: Rheumatoid arthritis location: unspecified site Rheumatoid factor presence: unspecified presence Qualified Code(s): M06.9 - Rheumatoid arthritis, unspecified Consult Attestations Medical Necessity Statement: I am expecting her stay to cross more than 2 midnights. Coding Level of Care Code New Pt Acute Cloth Bolt Bander for Zee Pablo Patient Type New History Detailed Exam Detailed Medical Decision Making Moderate Complexity Diagnoses CHF exacerbation I50.23 Heart failure type: systolic Cardiomyopathy I42.0 Cardiomyopathy type: dilated Rheumatoid arthritis M06.9 Rheumatoid arthritis location: unspecified site Rheumatoid factor presence: unspecified presence
--- NOTE | 2020-09-09 11:27 | PC.NURSE ---
Dr. Terrell came and seen the patient. Recommended increasing the Lasix to 40mg and to monitor strict I and O's. If patient can tolerated laying flat by Friday then will do angiogram. NPO order after midnight Friday put in.
[2020-09-09 13:38] LABS: Basophils # 0.1 10^3/uL (0.0-0.1); Basophils % 1.2 %; Eosinophils # 0.1 10^3/uL (0.0-0.8); Hematocrit 38.4 % (37.0-47.0); Hemoglobin 11.8 g/dL (11.5-15.3); Lymphocytes # 1.8 10^3/uL (0.8-4.8); Lymphocytes % 29.5 %; Mean Corpuscular HGB Conc 30.7 g/dL (30.0-36.0); Mean Corpuscular Hemoglobin 29.7 pg (28.0-34.0); Mean Corpuscular Volume 96.7 fL (81-99); Mean Platelet Volume 12.2 fL (7.4-10.4); Monocytes # 0.7 10^3/uL (0.2-0.9); Monocytes % 11.9 %; Neutrophils # 3.35 10^3/uL (1.8-7.7); Neutrophils % 56.1 %; Nucleated Red Blood Cells % 0 %; Platelet Count 136 10^3/cmm (130-400); Red Blood Count 3.97 10^6/uL (4.1-5.3); Red Cell Distribution Width 14.3 % (12.1-15.1)
[2020-09-09 14:07] LABS: Alanine Aminotransferase 10 U/L (0-33); Albumin Level 3.4 g/dL (3.5-5.2); Alkaline Phosphatase 55 IU/L (35-105); Anion Gap 11.2 (5-19); Aspartate Amino Transferase 18 U/L (0-32); Blood Urea Nitrogen 10 mg/dL (8-23); Calcium 8.7 mg/dL (8.5-10.5); Carbon Dioxide 28 mmol/L (22-29); Chloride 101 mmol/L (98-107); Globulin 2.2 g/dL (1.3-4.6); Glucose 96 mg/dL (65-115); Osmolality Calculated 283 mOsm/kg (285-295); Potassium 3.2 mmol/L (3.5-5.1); Sodium 137 mmol/L (136-145); Total Bilirubin 0.8 mg/dL (0.15-1.2); Total Protein 5.6 g/dL (6.6-8.7)
[2020-09-09 14:28] LABS: Folate Level 13.2 ng/mL (4.8-37.3)
[2020-09-09] MEDS: FUROsemide 40 mg Tablet PO (16:08)
[2020-09-09 16:54] LABS: Chol HDL Ratio 2.83 mg/dL (0.0-4.40); Cholesterol 164 mg/dL (0-200); HDL Cholesterol 58 mg/dL (60-100); LDL Cholesterol Calculated 78 mg/dL (50-129); LDL HDL Ratio 1.34 RATIO (0.00-3.22); Thyroid Stimulating Hormone 0.87 uIU/mL (0.27-4.20); Triglycerides 138 mg/dL (0-150)
[2020-09-09 17:02] LABS: Vitamin B12 382 pg/mL (232-1245)
[2020-09-09 17:09] LABS: Alcohol Level < 10 mg/dL (0-10)
[2020-09-09 17:20] LABS: Estmated Average Glucose 100; Hemoglobin A1C 5.1 % (4.0-6.0)
[2020-09-09] MEDS: carvedilol 3.125 mg Tablet PO (17:27)
[2020-09-09] MEDS: potassium chloride ER 20 mEq Tablet PO (17:27)
[2020-09-10] VITALS (7 sets, daily range): BP systolic 95–102; BP diastolic 61–72; PULSE 81–88; RESP 14–18; TEMP 36.4–36.6; O2SAT 93–97
[2020-09-10] MEDS: levothyroxine 25 mcg Tablet PO (06:05)
[2020-09-10] MEDS: lisinopril 2.5 mg Tablet PO (08:13)
[2020-09-10] MEDS: potassium chloride ER 20 mEq Tablet PO ×2 (08:13→16:59)
[2020-09-10] MEDS: pantoprazole DR 40 mg Tablet PO (08:13)
[2020-09-10] MEDS: FUROsemide 40 mg Tablet PO ×2 (08:13→16:59)
[2020-09-10] MEDS: aspirin 81 mg EC Tablet PO (08:13)
[2020-09-10 10:57] LABS: Alanine Aminotransferase 9 U/L (0-33); Albumin Level 3.6 g/dL (3.5-5.2); Alkaline Phosphatase 55 IU/L (35-105); Anion Gap 12.5 (5-19); Aspartate Amino Transferase 17 U/L (0-32); Blood Urea Nitrogen 13 mg/dL (8-23); Carbon Dioxide 26 mmol/L (22-29); Chloride 96 mmol/L (98-107); Globulin 1.9 g/dL (1.3-4.6); Glucose 94 mg/dL (65-115); Osmolality Calculated 272 mOsm/kg (285-295); Potassium 3.5 mmol/L (3.5-5.1); Sodium 131 mmol/L (136-145); Total Bilirubin 0.7 mg/dL (0.15-1.2); Total Protein 5.5 g/dL (6.6-8.7)
--- NOTE | 2020-09-10 15:27 | PM.PN ---
Subjective Subjective: Interval history: No acute events overnight. Patient states she slept very well. She states she is not slept this well over 1 month now. Denies any nausea vomiting, headache. Currently on room air. States and is concerned about her blood pressure being low but denies of having any dizziness, chest pain. Medications: Reviewed: Yes Vitals/I&O/Wt Last Vital Signs Temp 97.9 F 09/10/20 12:00 Pulse 88 09/10/20 12:00 Resp 14 09/10/20 12:00 BP 97/61 09/10/20 12:00 Pulse Ox 97 09/10/20 12:00 09/10/20 09/10/20 09/10/20 06:59 14:59 22:59 Intake Total 600 / 600 Output Total 425 / 625 900 / 900 Balance -425 / -45 -300 / -300 Physical Exam Narrative: EXAM NARRATIVE: General: No acute distress, AO x3 HEENT: PERRLA, pupils bilaterally equal and reactive Chest: Normal vesicular breath sounds, no added sounds, equal good air entry bilaterally CVS: S1-S2 regular, no murmurs, no tachycardia, no gallops, no rubs Abdomen: Soft, nontender, no organomegaly, bowel sounds present Neuro: No focal deficits, no facial deformity, AO x3, power 5/5 in all limbs Data : 09/09/20 12:11 09/10/20 10:30 A&P Assessment and plan (1) Combined systolic and diastolic heart failure: Newly diagnosed, Etiology unknown. Ischemic versus nonischemic. TSH, lipid panel, HbA1c within normal limits. Troponins without significant delta. Echocardiogram results appreciated. Cardiology recommendations appreciated. Continue with Lasix 40 mg twice daily, lisinopril 2.5 mg oral. Continue with Coreg at low-dose 3.25 mg twice daily, aspirin. Will uptitrate medications according to blood pressure. Plan for left heart cath tomorrow to rule out ischemic causes. Replete potassium as needed. Status: Acute (2) Cardiomyopathy: Status: Acute Qualifiers: Cardiomyopathy type: dilated Qualified Code(s): I42.0 - Dilated cardiomyopathy Attestations Medical Necessity Statement*: Patient requires further hospitalization for management of combined systolic and diastolic heart failure while ischemic cardiomyopathy is ruled out. Time Spent in Patient Care: Greater than 35 minutes (>than 50% of time spent in counselling and/or direct pt care on unit). Coding Level of Care Code Acute Industrial Locomotive Operator for Chg Fwd Diagnoses Combined systolic and diastolic heart failure I50.40 Cardiomyopathy I42.0 Cardiomyopathy type: dilated
[2020-09-10] MEDS: carvedilol 3.125 mg Tablet PO (16:59)
--- NOTE | 2020-09-10 16:59 | P.PN_ITS ---
Subjective Subjective: Interval history: Continues to diurese well patient has slept fine. Medications: Reviewed: Yes Vitals/I&O/Wt Last Vital Signs Temp 97.9 F 09/10/20 16:00 Pulse 86 09/10/20 16:00 Resp 14 09/10/20 16:00 BP 102/72 09/10/20 16:00 Pulse Ox 93 09/10/20 16:00 09/10/20 09/10/20 09/10/20 06:59 14:59 22:59 Intake Total 600 / 600 Output Total 425 / 625 900 / 900 Balance -425 / -45 -300 / -300 Physical Exam Narrative: EXAM NARRATIVE: GENERAL: Patient is alert, awake and oriented x3. NECK: No jugular vein distension. HEENT: No cyanosis. No icterus. No pallor. HEART: Regular S1 and S2. 2/6 sys murmur, No rub or gallop. LUNGS: Improved air entry bilaterally. ABDOMEN: Soft, nontender and nondistended. Positive bowel sounds. No guarding, rebound or tenderness. CENTRAL NERVOUS SYSTEM: Grossly nonfocal. EXTREMITIES: Lower extremities without edema bilaterally. Data : 09/09/20 12:11 09/10/20 10:30 A&P Assessment and plan (1) CHF exacerbation: New onset of heart failure with severely depressed LV function ejection fraction by echo 15% possibly secondary to dilated cardiomyopathy nonischemic however would like to rule out ischemia before completely labeling it. At this point we will continue IV diuresis with Lasix 40 mg twice a day and potassium chloride 20 mEq twice a day. Continue beta-preethi MOMO inhibitor. Continue to diurese. Patient has possible nonischemic cardiomyopathy but need to rule out obstructive causes/ischemic. We will proceed with left and right heart catheter tomorrow hopefully patient will be euvolemic by then. Status: Acute Qualifiers: Heart failure type: systolic Qualified Code(s): I50.23 - Acute on chronic systolic (congestive) heart failure (2) Cardiomyopathy: LV dysfunction with possible nonischemic cardiomyopathy further need to be explored in order to rule out ischemic component with left and right heart cath once euvolemic. Further investigation with left heart/right heart cath for new onset of LV dysfunction and heart failure will be performed tomorrow. Patient has been explained all risk benefit and alternative for the procedure she would like to proceed with it. Status: Acute Qualifiers: Cardiomyopathy type: dilated Qualified Code(s): I42.0 - Dilated cardiomyopathy (3) Rheumatoid arthritis: As per medicine. Status: Acute Qualifiers: Rheumatoid arthritis location: unspecified site Rheumatoid factor presence: unspecified presence Qualified Code(s): M06.9 - Rheumatoid arthritis, unspecified Attestations Medical Necessity Statement*: Patient require continuation hospitalization for above defined care. Coding Level of Care Code Established Pt Acute Yarn Weight And Strength Tester for [facility] Fwd Patient Type Established History Comprehensive Exam Comprehensive Medical Decision Making Moderate Complexity Diagnoses CHF exacerbation I50.23 Heart failure type: systolic Cardiomyopathy I42.0 Cardiomyopathy type: dilated Rheumatoid arthritis M06.9 Rheumatoid arthritis location: unspecified site Rheumatoid factor presence: unspecified presence
[2020-09-10 22:37] LABS: Quest SARS-CoV-2 RNA NOT DETECTED (NOT DETECTED)
[2020-09-10] MEDS: enoxaparin 40 mg/0.4 mL Syringe SUBCUT (22:57)
[2020-09-11] VITALS (25 sets, daily range): BP systolic 79–116; BP diastolic 54–77; PULSE 76–90; RESP 12–28; TEMP 36.2–36.7; O2SAT 94–96
[2020-09-11 06:07] LABS: Alanine Aminotransferase 10 U/L (0-33); Albumin Level 3.5 g/dL (3.5-5.2); Alkaline Phosphatase 51 IU/L (35-105); Anion Gap 14.5 (5-19); Aspartate Amino Transferase 16 U/L (0-32); Blood Urea Nitrogen 14 mg/dL (8-23); Calcium 8.8 mg/dL (8.5-10.5); Carbon Dioxide 27 mmol/L (22-29); Chloride 103 mmol/L (98-107); Globulin 2.1 g/dL (1.3-4.6); Glucose 94 mg/dL (65-115); Osmolality Calculated 292 mOsm/kg (285-295); Potassium 3.5 mmol/L (3.5-5.1); Sodium 141 mmol/L (136-145); Total Bilirubin 0.7 mg/dL (0.15-1.2); Total Protein 5.6 g/dL (6.6-8.7)
[2020-09-11] MEDS: levothyroxine 25 mcg Tablet PO (06:54)
[2020-09-11] MEDS: aspirin 81 mg EC Tablet PO (07:47)
[2020-09-11] MEDS: FUROsemide 40 mg Tablet PO (07:47)
[2020-09-11] MEDS: diphenhydrAMINE 50 mg Capsule PO (07:47)
[2020-09-11] MEDS: potassium chloride ER 20 mEq Tablet PO (07:48)
[2020-09-11] MEDS: carvedilol 3.125 mg Tablet PO (07:48)
[2020-09-11] MEDS: lisinopril 2.5 mg Tablet PO (07:48)
[2020-09-11] MEDS: pantoprazole DR 40 mg Tablet PO (07:48)
--- NOTE | 2020-09-11 09:13 | XACV_ITS ---
Exam Room: [facility] Ht: 168 cm Wt: 62 kg BSA: 1.70 m2 Gender: Female : 1950 Any Known Allergies: Penicillins Exam Priority: Routine Procedure(s): Procedure Description: Diagnostic procedure Procedure Description: Left Heart Catheterization Procedure Description: Right Heart Catheterization Procedure Description: Left ventriculography Procedure Description: O2 saturation Procedure Description: Coronary Angiography Diagnostic Cath Status: Elective Diagnostic Findings * No disease noted in the Left Main, Left Anterior Descending, Right, or Circumflex coronary arteries. * Coronary angiography shows right dominance. Conclusions 1. Normal Right and Left-sided filling pressurePCWP 13 mmHgPA mean 11 mmHgRight ventricle 20/-1RA mean 1 mm Hg. 2. Severely depressed LV function 3. estimated ejection fraction around 4. 20%, there is global severe hypokinesis. 5. No disease noted in the Left Main, Left Anterior Descending, Right, or Circumflex coronary arteries. 6. The apex, mid posterior, mid septum, anterolateral, mid inferior yang are hypokinetic. 7. All other visualized yang normal. 8. Severe left ventricular systolic dysfunction. Ejection fraction of 20%. 9. Indication: Heart failure. Recommendations * Continue current medical management and risk factor modification. Diagnostic RX Recommendation: medical therapy and/or counseling Ventriculography Ejection Fraction: 20.0 % Left Ventriculography Findings: * Severely depressed global function with anterior inferior and apical wall hypokinesis. Pressures Phase:Rest AO : 103 / 69 ( 81 ) @ 10:34:00 AM 96 / 74 ( 83 ) @ 10:35:00 AM 169 / 86 ( 85 ) @ 10:36:00 AM 114 / 65 ( 86 ) @ 10:44:00 AM 114 / 65 ( 86 ) @ 10:45:00 AM LV : 109 / 5 / 14 @ 10:42:00 AM 103 / 7 / 17 @ 10:43:00 AM 475 / 93 / 474 @ 10:44:00 AM 115 / 9 / 20 @ 10:44:00 AM RV : 20 / -1 / 2 @ 10:17:00 AM PA : 19 / 7 ( 11 ) @ 10:13:00 AM RA : a wave = 3 v wave = 2 mean = 1 @ 10:18:00 AM PCW : a wave = 11 v wave = 13 mean = 6 @ 10:16:00 AM O2 Content Phase:Rest PA : O2 Content O2: 59.0 @ 10:34:00 AM Saturations Phase:Rest AO : 95 @ 10:35:00 AM RA : 60 @ 10:44:00 AM RV : 59 @ 10:36:00 AM PA : 59 @ 10:34:00 AM Cardiac Output Phase:Rest Jaden : 3 @ 11:52:09 AM Jaden Cardiac Index: 2 @ 11:52:09 AM Flow Phase:Rest Qp : 3 @ 11:52:09 AM Qs : 3 @ 11:52:09 AM Valves Phase:DefaultPhase AV : 0.0 @ 11:52:09 AM AV Mean Gradient: 0.0 @ 11:52:09 AM AV Flow: 144 @ 11:52:09 AM Clinical Evaluation EBL: 5mL-10mL Procedural Details Procedure Consent Obtained. Pre-Procedure Time Out. Identified patient by full name and date of as verbalized by the patient/guarantor. Does the consent match the physician's order: Yes. Accurate & Complete Informed Consent: Yes. Inpatient/Outpatient History & Physical on Chart: Yes. If H&P is completed, is and addenduem needed: No; If yes, is the addendum complete: N/A. Visualize and Verify Site with Patient/Guarantor: N/A. Relevant Radiology Images available: Yes. Pre-op teaching completed and patient verbalized understanding. The risks, benefits, and alternatives of sedation and/or procedure were discussed by physician. The patient agrees to continue. Procedure started. [facility] Clinical Fraility Score: 3: Managing Well. Dial Refinisher Indications: Other. Chest Pain Symptom Assessment: Non-anginal Chest Pain. Correct patient, site and procedure confirmed by cath team. PERRLA. Strong, equal hand core machine tender bilaterally. Lungs clear x 5 lobes. IV Site on Arrival: 18 gauge in the right anticubital. IV Site on Arrival: 18 gauge in the left anticubital. IV Fluids: 0.9% NaCl at KVO. 0 mL infused prior to labor conciliator. Pre Procedural Pulses: right radial was 2+. right radial was prepped with chloroprep then draped in the usual sterile fashion. right groin was prepped with chloroprep then draped in the usual sterile fashion. Physician notified. Baseline sample Acquired. HR: 89 BPM. Physician arrived. Physician scrubbed in. Immediate Pre-Procedure Time Out. Correct Patient: Yes; Correct Procedure: Yes; Correct Site: Yes; Correct Patient Position: Yes; Correct Supplies: Yes; Dried Flammable Prep: Yes; Blood Products Available: N/A;. Lidocaine 1% infiltrated to the right brachial. sheath wire inserted through the IV catheter. IV catheter removed OTW. [place]ja MON catheter inserted. Oximetry samples were obtained. Normal venous range: 60-85%. Normal arterial range: 95-100%. Pressure measurements obtained. Lidocaine 1% infiltrated to the right radial. Arterial access obtained. A 5 dutch TIG catheter in over wire. Multiple views taken of right coronary artery. Catheter redirected to the LCA. Multiple views taken of left coronary artery. Catheter removed over the exchange wire. A 5 dutch Angled Pig catheter in over wire. EDP Sample taken: LV 109/5,14; HR: 77 BPM; SpO2: 94%. EDP Sample taken: LV 103/7,17; HR: 79 BPM; SpO2: 95%. LV gram performed in [place] @ 10 mL/second for a total of 30 mL. EDP Sample taken: LV 475/93,474; HR: 113 BPM; SpO2: 92%. Pullback taken: LV 115/9,20; AO 114/65(86); Mean: 0mmHg, Peak to Peak: 0mmHg, SEP: 20sec/min; HR: 91 BPM; SpO2: 93%. Catheter removed over the exchange wire. Venous Sheath(s) removed and manual pressure held until hemostasis was achieved. Sterile 4x4 and Op-site applied to the puncture site. No oozing or hematoma noted. Post sheath removal instructions were given and the patient verbalized understanding. Arterial sheath flushed and connected to tranducer and pressure bag with heparinized saline. Post Procedure: Pulses reassessed and unchanged. PERRLA. Strong, equal hand core machine tender bilaterally. No VTE prophylaxis required. A TR Band was successful obtaining hemostatsis at the Right Radial artery insertion site. A Manual Compression was successful obtaining hemostatsis at the Right Brachial Vein insertion site. Medication's Wasted: Lidocaine 1% = 13 mL. Medication's Wasted: Heparin = 1000 units. Medication's Wasted: Nitro = 49.7 mg. Medication's Wasted: Other = Fentanyl 50 mcg. Total IV fluids: 100 mL. Post-op diagnosis: Normal Coronaries. Complications: None. Estimated blood loss: 5mL-10mL. Procedure completed. Vital chart was stopped. Patient transferred by wheelchair to 1st floor. Access Site Site: Right Brachial Vein Sheath Size: 6 Fr Hemostasis Method: Manual Compression Hemostasis Success: Successful Site: Right Radial artery Sheath Size: 6 Fr Hemostasis Method: TR Band Hemostasis Success: Successful Procedure Medications Start: 11:00 AM Stop: 11:00 AM Medication: Versed 1 mg and Fentanyl 25 mcg Amount: 1 Route: I.V. Start: 11:02 AM Stop: 11:02 AM Medication: Fentanyl Amount: 25 mcg Route: I.V. Start: 11:06 AM Stop: 11:06 AM Medication: Versed Amount: 1 mg Route: I.V. Start: 11:21 AM Stop: : AM Medication: Versed Amount: 1 mg Route: I.V. Start: 11: AM Stop: AM Medication: Nitrogylcerin Amount: 100 mcg Start: 11: AM Stop: : AM Medication: Nitrogylcerin Amount: 200 mcg Route: I.A. Start: 11:33 AM Stop: 11:33 AM Medication: Heparin Amount: 5000 units Route: I.V. Start: 11:40 AM Stop: 11:40 AM Medication: Versed Amount: 1 mg Route: I.V. I, the attending physician, have reviewed and verified all procedure medications. Yes, all medications given per verbal order History/Risk Factors Hypertension: No Dyslipidemia: No Peripheral Arterial Disease (PAD): No Myocardial Infarction (MD): No Obesity: No Renal Disease: No Tobacco Use: Never Prior Interventions PCI: No CABG: No Valve Surgery: No Report Signatures Finalized by Amie Terrell MD on 09/24/2020 05:06 PM
--- NOTE | 2020-09-11 10:37 | P.PN_ITS ---
Subjective Subjective: Interval history: Underwent left heart cath did not show significant coronary artery disease, right-sided pressures were within normal limits after good diuresis. Medications: Reviewed: Yes Vitals/I&O/Wt Last Vital Signs Temp 97.7 F 09/11/20 08:00 Pulse 83 09/11/20 08:00 Resp 18 09/11/20 08:00 BP 113/65 09/11/20 08:00 Pulse Ox 95 09/11/20 08:00 09/10/20 09/11/20 09/11/20 22:59 06:59 14:59 Intake Total 240 / 840 Output Total 300 / 1200 800 / 2000 Balance -60 / -360 -800 / -1160 Physical Exam Narrative: EXAM NARRATIVE: GENERAL: Patient is alert, awake and oriented x3. NECK: No jugular vein distension. HEENT: No cyanosis. No icterus. No pallor. HEART: Regular S1 and S2. 2/6 sys murmur, No rub or gallop. LUNGS: Improved air entry bilaterally. ABDOMEN: Soft, nontender and nondistended. Positive bowel sounds. No guarding, rebound or tenderness. CENTRAL NERVOUS SYSTEM: Grossly nonfocal. EXTREMITIES: Lower extremities without edema bilaterally. Data : 09/09/20 12:11 09/11/20 05:11 A&P Assessment and plan (1) CHF exacerbation: New onset of heart failure with severely depressed LV function ejection fraction by echo 15% possibly secondary to dilated cardiomyopathy nonischemic however would like to rule out ischemia before completely labeling it. At this point we will continue IV diuresis with Lasix 40 mg twice a day and potassium chloride 20 mEq twice a day. Continue beta-preethi MOMO inhibitor. Continue to diurese. Patient has possible nonischemic cardiomyopathy but need to rule out obstructive causes/ischemic. We will proceed with left and right heart catheter tomorrow hopefully patient will be euvolemic by then. Patient underwent left heart cath/right heart cath she was noted to have nonischemic cardiomyopathy. Continue current regimen including carvedilol, MOMO inhibitor, aspirin and furosemide 40 mg along with 20 meq of potassium. Status: Acute Qualifiers: Heart failure type: systolic Qualified Code(s): I50.23 - Acute on chronic systolic (congestive) heart failure (2) Cardiomyopathy: LV dysfunction with possible nonischemic cardiomyopathy further need to be explored in order to rule out ischemic component with left and right heart cath once euvolemic. Further investigation with left heart/right heart cath for new onset of LV dysfunction and heart failure will be performed tomorrow. Patient has been explained all risk benefit and alternative for the procedure she would like to proceed with it. Nonischemic cardiomyopathy. Continue current regimen. Patient has been advised LifeVest which she declined. We will reassess LV function in 90 days to decide regarding whether she needs ICD or not. We will see her back in the clinic in 7 days Status: Acute Qualifiers: Cardiomyopathy type: dilated Qualified Code(s): I42.0 - Dilated cardiomyopathy (3) Rheumatoid arthritis: As per medicine. Status: Acute Qualifiers: Rheumatoid arthritis location: unspecified site Rheumatoid factor presence: unspecified presence Qualified Code(s): M06.9 - Rheumatoid arthritis, unspecified Attestations Medical Necessity Statement*: Patient can be discharged home today Coding Level of Care Code Established Pt Acute Special Trackwork Blacksmith for [facility] Patient Type Established History Detailed Exam Detailed Medical Decision Making Moderate Complexity Diagnoses CHF exacerbation I50.23 Heart failure type: systolic Cardiomyopathy I42.0 Cardiomyopathy type: dilated Rheumatoid arthritis M06.9 Rheumatoid arthritis location: unspecified site Rheumatoid factor presence: unspecified presence
--- NOTE | 2020-09-11 12:00 | PC.NURSE ---
POST CATH NOTE Received the back from the cardiac cath lab technologist S/P diagnostic Left and Right heart cath. Patient ambulated from the wheelchair to the restroom to void and then to CPRU Room #4 with no incidence. Patient A & O x 3. Permit Specialist placed and vital signs obtained. Lungs CTAB and BS + x 4 quads. TR band intact to the right radial with no bleeding or hematoma noted. Palpable radial pulse. A pressure dressing is noted on the right brachial area from the C. Dressing dry and intact. Patient ordered a lunch tray and is sitting up drinking a soda. Will transfer to a CSU bed as one becomes available. Patient with no concerns voiced at this time. Will continue to monitor closely.
[2020-09-11 12:36] LABS: Blood Gas Operator Identificat AMH
[2020-09-11 12:37] LABS: Alveolar-Arterial Oxygen Gradi 40.7 mmHg (5-10); Arterial Blood Gas Hematocrit 36.9 % (37-47); Blood Gas Sample Site AORTA; Blood Gas Sample Type ART; Carboxyhemoglobin 1.2 %THgb (0.4-20.1); Methemoglobin 0.6 % (0.4-1.5)
[2020-09-11 12:38] LABS: Blood Gas Operator Identificat AMH
[2020-09-11 12:39] LABS: Arterial Blood Gas Hematocrit 27.4 % (37-47); Blood Gas Sample Type VENOUS
[2020-09-11 12:40] LABS: Carboxyhemoglobin 1.2 %THgb (0.4-20.1); HGB O2 Sat 57.7 % (95-100); Methemoglobin 0.8 % (0.4-1.5); Total Hemoglobin 8.9 g/dL (12-16)
[2020-09-11 12:41] LABS: Arterial Blood Gas Hematocrit 22.9 % (37-47); Blood Gas Operator Identificat AMH; Blood Gas Sample Site RIGHT ATRIUM; Blood Gas Sample Type VENOUS; Carboxyhemoglobin 1.3 %THgb (0.4-20.1); HGB O2 Sat 58.3 % (95-100); Methemoglobin 0.8 % (0.4-1.5); Total Hemoglobin 7.5 g/dL (12-16)
[2020-09-11 12:42] LABS: Arterial Blood Gas Hematocrit 38.1 % (37-47); Blood Gas Operator Identificat AMH; Blood Gas Sample Site PULM ARTERY; Blood Gas Sample Type VENOUS; Carboxyhemoglobin 1.2 %THgb (0.4-20.1); HGB O2 Sat 57.8 % (95-100); Methemoglobin 0.8 % (0.4-1.5); Total Hemoglobin 12.4 g/dL (12-16)
--- NOTE | 2020-09-11 12:46 | PC.NURSE ---
REPORT CALLED Report called to YUMIKO Jeffries. Patient transported via W/C to [facility].
--- NOTE | 2020-09-11 14:56 | PM.DCS ---
Discharge Providers Date of Admission: 09/09/20 13:03 Date of Discharge: September 11, 2020 Attending Provider at Admission: Alcira Saavedra MD Attending Provider at Discharge: Antonio Segal MD Primary Care Provider: Jamal Lay DO Diagnoses at Discharge Discharge Diagnosis (1) CHF exacerbation: Status: Acute Qualifiers: Heart failure type: systolic Qualified Code(s): I50.23 - Acute on chronic systolic (congestive) heart failure (2) Cardiomyopathy: Status: Acute Qualifiers: Cardiomyopathy type: dilated Qualified Code(s): I42.0 - Dilated cardiomyopathy (3) Rheumatoid arthritis: Status: Acute Qualifiers: Rheumatoid arthritis location: unspecified site Rheumatoid factor presence: unspecified presence Qualified Code(s): M06.9 - Rheumatoid arthritis, unspecified Reason for Visit Reason for Visit: FLUID ON HEART/SENT BY DR LAY Hospital Course Hospital Evette Wilkinson is a 70-year-old white female who presented to the hospital with shortness of breath and some ankle edema. An echocardiogram revealed a very low EF, approximately 15% with 2/4 diastolic dysfunction. Cardiology was consulted. Diuresis was initiated in the hospital. Low-dose carvedilol, lisinopril were added to her regimen. She underwent a coronary angiogram and right heart cath on September 11. In discussion with Dr. Terrell this showed a nonischemic cardiomyopathy. She was able to be discharged on September 11, with close follow-up with cardiology in 1 week as well as her primary care provider. Cardiology will be following up with her to determine whether a LifeVest is appropriate. She had had no significant arrhythmias in the hospital. On follow-up she will get a BMP and CBC. She was instructed to monitor her weight on a daily basis, call for any significant weight increases to the cardiology office. Physical Exam Narrative: EXAM NARRATIVE: General exam is no distress Neck is supple no lymphadenopathy or thyromegaly Cardiovascular regular rate and rhythm without murmur Lungs clear Abdomen is soft with positive bowel sounds Extremities no cyanosis clubbing or edema Discharge Data Data Completed and Pending: Completed Studies During Hospitalization Category Date Time Status XR chest 1V mario ble [id number] Stat Exams 09/08/20 12:39 Completed Pending at discharge Category Date Time Status NURSE SUBSTANCE ABUSE request for service Routin e Exams 09/11/20 09:13 Taken Respiratory Viral Panel PCR Stat Lab 09/09/20 22:00 Received Labs from last 24 hours 09/11/20 09/11/20 09/11/20 11:36 11:36 11:36 Specimen Type Art Venous Venous Sample Site Aorta Right atrium Right ventricle Francisco Test N/a N/a N/a A-a O2 Gradient 40.7 H Not Reportable Not Reportable Hematocrit 36.9 L 22.9 L 27.4 L Hgb O2 Saturation 93.0 L 58.3 L 57.7 L Carboxyhemoglobin 1.2 1.3 1.2 Methemoglobin 0.6 0.8 0.8 Total Hemoglobin 12.0 7.5 L 8.9 L O2 Delivery Device N/a N/a N/a FiO2 21.0 21.0 21.0 Specimen Drawn By [email or web address] Centrifugal Spinner ID Amh Amh Amh Sodium Potassium Chloride Carbon Dioxide Anion Gap BUN Creatinine GFR Calculation Glucose Calculated Osmolal ity Calcium Total Bilirubin AST ALT Alkaline Phosphata se Total Protein Albumin Globulin SARS-CoV-2 RNA (RT -PCR) 09/11/20 09/11/20 09/09/20 11:36 05:11 01:25 Specimen Type Venous Sample Site Pulm artery Francisco Test N/a A-a O2 Gradient Not Reportable Hematocrit 38.1 Hgb O2 Saturation 57.8 L Carboxyhemoglobin 1.2 Methemoglobin 0.8 Total Hemoglobin 12.4 O2 Delivery Device N/a FiO2 21.0 Specimen Drawn By [email or web address] Centrifugal Spinner ID Amh Sodium 141 Potassium 3.5 Chloride 103 Carbon Dioxide 27 Anion Gap 14.5 BUN 14 Creatinine 0.9 GFR Calculation Not Reportable Glucose 94 Calculated Osmolal ity 292 Calcium 8.8 Total Bilirubin 0.7 AST 16 ALT 10 Alkaline Phosphata se 51 Total Protein 5.6 L Albumin 3.5 Globulin 2.1 SARS-CoV-2 RNA (RT -PCR) Not detected Vitals: Last Vital Signs Temp 97.7 F 09/11/20 08:00 Pulse 84 09/11/20 12:30 Resp 18 09/11/20 12:30 BP 103/72 09/11/20 12:30 Pulse Ox 95 09/11/20 12:30 Discharge Plan Discharge Patient Disposition: Home Condition: Stable Prescriptions: New aspirin 81 mg Tablet,Delayed Release (Dr/Ec) 81 mg PO DAILY Qty: 30 RF: 0 carvedilol 3.125 mg Tablet 3.125 mg PO BID Qty: 60 RF: 0 potassium chloride 20 mEq tablet extended release 20 meq PO DAILY Qty: 30 RF: 0 lisinopril 2.5 mg Tablet 2.5 mg PO DAILY Qty: 30 RF: 0 Continued alendronate 70 mg tablet 70 mg PO Q7D RF: 0 albuterol sulfate 2.5 mg /3 mL (0.083 %) Solution For Nebulization 2.5 mg INHALATION Q4H PRN (Reason: Shortness Of Breath) RF: 0 pantoprazole 40 mg Tablet,Delayed Release (Dr/Ec) 40 mg PO DAILY@07 RF: 0 levothyroxine 25 mcg tablet 25 mcg PO DAILY@07 RF: 0 multivitamin Tablet 1 tab PO DAILY@07 RF: 0 Discontinued potassium chloride 10 mEq Tablet Extended Release 10 meq PO DAILY@07 RF: 0 Lasix 20 mg Tablet 20 mg PO DAILY@07 RF: 0 Discharge Orders: Discharge Order (Routine); Ordered 09/11/20 Ordered By: Antonio Segal Referrals: Amie Terrell MD [Physician] - 1 week (CBC and BMP on follow-up) Jamal Lay DO [Primary Care Provider] - 4-7 days Discharge Diet: Cardiac Discharge Activity: Increase activity as tolerated Patient Instructions: Left Heart Catheterization (DC), Right Heart Catheterization (DC), Opioid Safety Activity Restrictions/Additional Instructions: Take all medicine as prescribed Weight yourself daily, and if weight increases 2 days in a row, over 3 pounds from baseline give cardiology a call Do not discharge until protocol is completed status post angiogram for radial artery site. Make sure she gets discharge instructions regarding lifting. Discharge Attestations Time Spent in Discharge Care*: greater than 30 min Quality Metrics Clinical Quality Measures During this hospital stay, did patient experience: None Coding Level of Care Code Acute Chg FW DC note Diagnoses CHF exacerbation I50.23 Heart failure type: systolic Cardiomyopathy I42.0 Cardiomyopathy type: dilated Rheumatoid arthritis M06.9 Rheumatoid arthritis location: unspecified site Rheumatoid factor presence: unspecified presence
--- NOTE | 2020-09-11 18:41 | PC.NURSE ---
At 1500 began removing air from TR band in 3ml increments over the next hour. Patient tolerated it well. No bleeding. No hematoma. 2x2 dressing with clear cover drsg to right radial and right brachial sites.
[2020-09-14 15:47] LABS: Adenovirus Not Detected (Not Detected); Human Metapneumovirus Not Detected (Not Detected); Human Parainflu Virus 1 Not Detected (Not Detected); Human Parainflu Virus 2 Not Detected (Not Detected); Human Parainflu Virus 3 Not Detected (Not Detected); Human Rsv A Not Detected (Not Detected); Influenza A Not Detected (Not Detected); Influenza B Not Detected (Not Detected); Rhinovirus/Enterovirus Not Detected (Not Detected)
== END 2020-09-11 18:30 | disposition home or self-care (01) | DRG 287 ==
LOC: ER 16:08 → MEDSURG 23:59 → CSU 09-11 13:02
PROVIDERS: Internal Medicine Cardiovascular Disease; Nurse Practitioner Family; Student in an Organized Health Care Education/Training Program; Admitting Provider Student in an Organized Health Care Education/Training Program; Emergency Provider Family Medicine; PCP Electrodiagnostic Medicine; Visit Provider Internal Medicine
PROC: B211YZZ Fluoroscopy of Multiple Coronary Arteries using Other Contrast (ICD-10-PCS; principal; 2020-09-11 10:00)
DX: I50.23 Acute on chronic systolic (congestive) heart failure (principal); I42.0 Dilated cardiomyopathy; M06.9 Rheumatoid arthritis, unspecified; E03.9 Hypothyroidism, unspecified; K21.9 Gastro-esophageal reflux disease without esophagitis; I08.0 Rheumatic disorders of both mitral and aortic valves
CPT/HCPCS: 36415; 71045; 80053; 80061; 80307; 81003; 82607; 82746; 82810; 83036; 83880; 84132; 84443; 84484; 85025; 87426; 87635; 93005; 93306; 93453; 96365; 96366; 96372; 99285; C1751; C1769; C1887; C1894; G0378; J1644; J1650; J1940; J2250; J2405; J3010; J3480; J3490; J7030; Q0163; Q9967

== ENCOUNTER → 2020-09-18 11:23 | Outpatient (BNVA) | payer MEDICARE, OTHER, SELFPAY | PROVIDERS: PCP Electrodiagnostic Medicine; Visit Provider Nurse Practitioner Family | DX: I42.0 Dilated cardiomyopathy (principal); I50.40 Unspecified combined systolic (congestive) and diastolic (congestive) heart failure; Z09 Encounter for follow-up examination after completed treatment for conditions other than malignant neoplasm | CPT/HCPCS: 80048; 83880 ==

== ENCOUNTER → 2020-10-02 08:44 | Outpatient (BNVA) | payer MEDICARE, OTHER, SELFPAY | PROVIDERS: PCP Electrodiagnostic Medicine; Visit Provider Internal Medicine Cardiovascular Disease | DX: I42.0 Dilated cardiomyopathy (principal); I50.40 Unspecified combined systolic (congestive) and diastolic (congestive) heart failure | CPT/HCPCS: 80048 ==

== ENCOUNTER → 2020-10-20 12:05 | Outpatient (BNVA) | payer MEDICARE, OTHER, SELFPAY | PROVIDERS: PCP Electrodiagnostic Medicine; Visit Provider Nurse Practitioner Family | DX: I42.0 Dilated cardiomyopathy (principal) | CPT/HCPCS: 80162 ==

== ENCOUNTER → 2021-05-14 10:03 | Outpatient (BNVA) | payer MEDICARE, OTHER, SELFPAY | PROVIDERS: PCP Electrodiagnostic Medicine; Visit Provider Internal Medicine Cardiovascular Disease | DX: R06.02 Shortness of breath (principal); I34.0 Nonrheumatic mitral (valve) insufficiency; I50.40 Unspecified combined systolic (congestive) and diastolic (congestive) heart failure; Z87.891 Personal history of nicotine dependence | CPT/HCPCS: 36415; 80048; 83880; 99215 ==

== ENCOUNTER 2021-06-06 07:05 | Outpatient (CLI) | payer MEDICARE, OTHER, SELFPAY ==
--- NOTE | 2021-06-06 07:15 | USCV_ITS ---
Jaja Myrick Age: 71 Gender: F : 1950 Exam Date: 06/06/2021 07:28 Ordering Phys: Becca Padilla MD ([email or web address]) Technologist: Chris Ta Exam Location: [facility] [place] Indication: CHF BP: 118 / 70 HR: 72 Rhythm: Sinus Technical Quality: MEASUREMENTS (Male / Female) Normal Values 2D ECHO LV Diastolic Diameter PLAX 4.4 cm 4.2 - 5.9 / 3.9 - 5.3 cm LV Systolic Diameter PLAX 3.8 cm IVS Diastolic Thickness 0.9 cm 0.6 - 1.0 / 0.6 - 0.9 cm IVS Systolic Thickness 0.7 cm LVPW Diastolic Thickness 1.4 cm 0.6 - 1.0 / 0.6 - 0.9 cm LVPW Systolic Thickness 1.2 cm LVOT Diameter 2.0 cm LV Ejection Fraction 2D Teich 27.4 % LV Ejection Fraction MOD 2C 34.1 % LV Ejection Fraction 2C AL 34.8 % LA Diameter 3.0 cm LA Width 3.6 cm LA Height 3.8 cm RA Width 2.9 cm RA Height 2.9 cm Aorta at Sinotubular Diameter 2.1 cm M-MODE Aortic Annulus Diameter 3.0 cm LA Ao Ratio MM 1.0 MV E Point Septal Separation 0.7 cm DOPPLER AV Peak Velocity 124.0 cm/s LVOT Peak Velocity 70.0 cm/s AV Area Cont Eq vti 1.9 cm squared AV Area Cont Eq pk 1.8 cm squared MV Area PHT 2.5 cm squared Mitral E to A Ratio 0.8 MV E' Velocity 57.0 cm/s Right Atrial Pressure 3.0 mmHg RV Acceleration Time 0.1 s RV Ejection Time 0.3 s RV AcT/ET 0.5 FINDINGS Left Ventricle Normal LV size with diminished ejection fraction of 5 to 40%, visual. Diffuse hypokinesia of the left ventricle.Grade I/IV diastolic dysfunction (abnormal relaxation filling pattern), normal to mildly elevated filling pressures. Right Ventricle The right ventricle is normal in size and function. Right Atrium The right atrium is normal in size. Left Atrium The left atrium is normal in size. Mitral Valve Thickened mitral valve. Mild mitral valve regurgitation. Aortic Valve Thickened aortic valve. [id number] aortic valve regurgitation. Tricuspid Valve Mild tricuspid valve regurgitation. Could not calculate the PA pressure because of the poor Doppler signals Pulmonic Valve Pulmonic valve not well visualized. Pericardium Normal pericardium without effusion. Aorta Normal ascending aorta dimension. CONCLUSIONS Normal LV size with diminished ejection fraction of 35 to 40%( visual). Diffuse hypokinesia of the left ventricle. Grade I/IV diastolic dysfunction (abnormal relaxation filling pattern), normal to mildly elevated filling pressures. Thickened mitral valve. Mild mitral valve regurgitation. Thickened aortic valve. [id number] aortic valve regurgitation. Mild tricuspid valve regurgitation. Could not calculate the PA pressure because of the poor Doppler signals. There is no pericardial effusion. There are no intracardiac masses. Compared to the study from 09/08/2020, there is significant improvement in the LV ejection fraction(from 15% to 35 - 40%) Corrected copy Dr Becca Padilla MD [facility] (Electronically Signed) Final Date: 11 Jun 2021 09:03 Amended: 11 Jun 2021 13:02 C
== END 2021-06-06 07:06 | disposition home or self-care (01) ==
LOC: RAD 07:07
PROVIDERS: PCP Electrodiagnostic Medicine; Visit Provider Internal Medicine Cardiovascular Disease
DX: I08.3 Combined rheumatic disorders of mitral, aortic and tricuspid valves (principal)
CPT/HCPCS: 93306

== ENCOUNTER → 2021-06-25 13:10 | Outpatient (BNVA) | payer MEDICARE, OTHER, SELFPAY | PROVIDERS: PCP Electrodiagnostic Medicine; Visit Provider Nurse Practitioner Family | DX: I42.8 Other cardiomyopathies (principal); Z87.891 Personal history of nicotine dependence | CPT/HCPCS: 99213; 99214 ==

== ENCOUNTER 2021-07-19 08:48 | Outpatient (CLI) | payer MEDICARE, OTHER, SELFPAY ==
[2021-07-19 10:17] LABS: Anion Gap 12.8 (5-19); Blood Urea Nitrogen 11 mg/dL (8-23); Calcium 8.5 mg/dL (8.5-10.5); Carbon Dioxide 25 mmol/L (22-29); Chloride 100 mmol/L (98-107); Glucose 88 mg/dL (65-115); Osmolality Calculated 277 mOsm/kg (285-295); Potassium 3.8 mmol/L (3.5-5.1); Sodium 134 mmol/L (136-145)
== END 2021-07-19 08:49 | disposition home or self-care (01) ==
PROVIDERS: PCP Electrodiagnostic Medicine; Visit Provider Nurse Practitioner Family
DX: I42.8 Other cardiomyopathies (principal)
CPT/HCPCS: 80048

== ENCOUNTER 2021-08-10 08:43 | Outpatient (CLI) | payer MEDICARE, OTHER, SELFPAY ==
--- NOTE | 2021-08-10 08:52 | US_ITS ---
WS: [id number] DIAGNOSTIC BILATERAL DIGITAL BREAST TOMOSYNTHESIS MAMMOGRAPHY WITH CAD LEFT breast ultrasound, limited. HISTORY: LT BREAST MASS COMPARISON: 07/30/2020, 08/02/2019 and 04/29/2018 TECHNIQUE: Bilateral craniocaudad, mediolateral oblique, and mediolateral views are submitted with to mosynthesis and SM. Computer aided detection utilized. Breast composition: There are scattered areas of fibroglandular density. Palpable marker is placed al juli the anterior LEFT lateral breast near 3:00. No underlying mass identified. No soft tissue distort ion. Long-term stability of 2 nodules in the lateral superior RIGHT breast. LEFT breast ultrasound, limited. Patient directed translation director to 4:00 LEFT breast. No mass or nodule or distortion or soft tissue [facility] stella. US/US breast LT limited* [id number] IMPRESSION: BI-RADS: 2-Benign FOLLOW UP: 1 Year Follow-up
== END 2021-08-10 08:44 | disposition home or self-care (01) ==
PROVIDERS: PCP Electrodiagnostic Medicine; Visit Provider Electrodiagnostic Medicine
DX: N63.25 Unspecified lump in the left breast, overlapping quadrants (principal)
CPT/HCPCS: 76642; 77062

== ENCOUNTER → 2021-08-15 13:12 | Outpatient (BNVA) | payer MEDICARE, OTHER, SELFPAY | PROVIDERS: PCP Electrodiagnostic Medicine; Visit Provider Internal Medicine Cardiovascular Disease | DX: I42.8 Other cardiomyopathies (principal); I50.40 Unspecified combined systolic (congestive) and diastolic (congestive) heart failure; I34.0 Nonrheumatic mitral (valve) insufficiency; E03.9 Hypothyroidism, unspecified; Z87.891 Personal history of nicotine dependence | CPT/HCPCS: 80048; 83880; 99214 ==

== ENCOUNTER → 2022-02-13 12:21 | Outpatient (BNVA) | payer MEDICARE, OTHER, SELFPAY | PROVIDERS: PCP Electrodiagnostic Medicine; Visit Provider Internal Medicine Cardiovascular Disease | DX: I42.8 Other cardiomyopathies (principal); I34.0 Nonrheumatic mitral (valve) insufficiency; I50.40 Unspecified combined systolic (congestive) and diastolic (congestive) heart failure; Z87.891 Personal history of nicotine dependence | CPT/HCPCS: 99213 ==

== ENCOUNTER 2022-02-22 12:35 | Outpatient (CLI) | payer MEDICARE, OTHER, SELFPAY ==
--- NOTE | 2022-02-22 12:45 | USCV_ITS ---
Jaja Myrick Age: 71 Gender: F : 1950 Exam Date: 02/22/2022 12:48 Ordering Phys: Kayden Wills MD ([email or web address]) Technologist: Ignacio Armenta Exam Location: [facility] [place] Indication: aortic insuff BP: 120 / 70 HR: 79 Rhythm: Sinus Technical Quality: Good MEASUREMENTS (Male / Female) Normal Values 2D ECHO LV Diastolic Diameter PLAX 4.6 cm 4.2 - 5.9 / 3.9 - 5.3 cm LV Systolic Diameter PLAX 3.3 cm IVS Diastolic Thickness 0.9 cm 0.6 - 1.0 / 0.6 - 0.9 cm IVS Systolic Thickness 1.6 cm LVPW Diastolic Thickness 1.0 cm 0.6 - 1.0 / 0.6 - 0.9 cm LVPW Systolic Thickness 1.4 cm LVOT Diameter 2.0 cm LV Ejection Fraction 2D Teich 54.6 % LV Ejection Fraction MOD 2C 65.4 % LV Ejection Fraction 2C AL 64.9 % LA Diameter 3.1 cm IVC Diameter 1.9 cm M-MODE Aortic Annulus Diameter 3.1 cm LA Ao Ratio MM 1.1 MV E Point Septal Separation 1.8 cm DOPPLER AV Peak Velocity 101.0 cm/s LVOT Peak Velocity 79.0 cm/s AV Area Cont Eq vti 3.2 cm squared AV Area Cont Eq pk 2.6 cm squared MV Area PHT 5.0 cm squared Mitral E to A Ratio 0.6 MV E' Velocity 23.5 cm/s Mitral E to MV E' Ratio 5.3 Mitral E to LV E' Lateral Ratio 5.1 Mitral E to LV E' Septal Ratio 5.6 TR Peak Velocity 286.3 cm/s TR Peak Gradient 32.8 mmHg TV Peak E Velocity 72.0 cm/s Right Atrial Pressure 3.0 mmHg Pulmonary Artery Systolic Pressu 35.8 mmHg RV Acceleration Time 0.1 s FINDINGS Left Ventricle Normal left ventricular size, systolic function and wall thickness, with no regional wall motion abnormalities. Grade I/IV diastolic dysfunction (abnormal relaxation filling pattern), normal to mildly elevated filling pressures. Left ventricular ejection fraction is estimated at 65 %. Right Ventricle Normal right ventricular size and systolic function. Normal right ventricular systolic pressure. Right Atrium The right atrium is normal in size. Left Atrium The left atrium is normal in size. Mitral Valve Structurally normal mitral valve without significant stenosis or prolapse. Trace mitral valve regurgitation. Aortic Valve Structurally normal trileaflet aortic valve. No aortic valve stenosis. Mild aortic valve regurgitation. Tricuspid Valve Structurally normal tricuspid valve without significant stenosis or regurgitation. Pulmonary artery systolic pressure is normal. Pulmonic Valve Pulmonic valve not well visualized. Pericardium Normal pericardium without effusion. Aorta Normal ascending aorta dimension. IVC The inferior vena cava appears normal. CONCLUSIONS Normal left ventricular size, systolic function and wall thickness, with no regional wall motion abnormalities. Grade I/IV diastolic dysfunction (abnormal relaxation filling pattern), normal to mildly elevated filling pressures. Left ventricular ejection fraction is estimated at 65 %. Structurally normal trileaflet aortic valve. No aortic valve stenosis. Mild aortic valve regurgitation. Compared to the previous report from 06/06/2021, the ejection fraction continues to improve and is now back to normal. Otherwise, there has been no change. Dr. Kayden Wills MD (Electronically Signed) Final Date: 23 February 2022 08:31 S
== END 2022-02-22 12:36 | disposition home or self-care (01) ==
LOC: RAD 12:35
PROVIDERS: PCP Electrodiagnostic Medicine; Visit Provider Internal Medicine Cardiovascular Disease
DX: I42.8 Other cardiomyopathies (principal); I35.1 Nonrheumatic aortic (valve) insufficiency
CPT/HCPCS: 93306

== ENCOUNTER → 2022-07-26 11:01 | Outpatient (BNVA) | payer MEDICARE, OTHER, SELFPAY | PROVIDERS: PCP Electrodiagnostic Medicine; Visit Provider Nurse Practitioner Family | DX: I50.40 Unspecified combined systolic (congestive) and diastolic (congestive) heart failure (principal); I42.8 Other cardiomyopathies; Z87.891 Personal history of nicotine dependence | CPT/HCPCS: 99213 ==

== ENCOUNTER 2022-08-21 14:13 | Outpatient (CLI) | payer MEDICARE, OTHER, SELFPAY ==
--- NOTE | 2022-08-21 14:24 | XR_ITS ---
WS: [id number] SCREENING DEXA SCAN [employer] CLINICAL INFORMATION: OSTEOPOROSIS COMPARISON: April 11, 2020 FINDINGS: The L1-L4 bone mineral density measures 1.034 g/cm2. This corresponds to a T score score of -1.2 and Z score of 0.6. Left femoral neck bone mineral density measures 0.824 g/cm2. This corresponds to a T score of -1.5 an d Z score of 0.3. Right femoral neck bone mineral density measures 0.895 g/cm2. This corresponds to a T score -0.9of an d Z score of 0.9. Mean femoral neck bone mineral density measures 0.860 g/cm2. This corresponds to a T score of -1.2 an d Z score of 0.6. XR/XR DEXA axial skeleton* [id number] IMPRESSION: Osteopenia lumbar spine. Osteopenia femoral necks. Patient's FRAX calculated 10 year probability for major osteoporotic fracture i s 57.2 % and osteoporotic hip fracture is 39.0%. Since 2020, Bone mineral density lumbar spine decreased -1.1% Bone mineral density femoral necks decreased -4.1%
== END 2022-08-21 14:14 | disposition home or self-care (01) ==
PROVIDERS: PCP Electrodiagnostic Medicine; Visit Provider Electrodiagnostic Medicine
DX: Z13.820 Encounter for screening for osteoporosis (principal); M81.0 Age-related osteoporosis without current pathological fracture; M85.89 Other specified disorders of bone density and structure, multiple sites
CPT/HCPCS: 77080

== ENCOUNTER → 2023-01-22 13:03 | Outpatient (BNVA) | payer MEDICARE, OTHER, SELFPAY | PROVIDERS: PCP Electrodiagnostic Medicine; Visit Provider Nurse Practitioner Family | DX: L72.0 Epidermal cyst (principal); L57.8 Other skin changes due to chronic exposure to nonionizing radiation; D22.4 Melanocytic nevi of scalp and neck; L81.4 Other melanin hyperpigmentation; L57.0 Actinic keratosis | CPT/HCPCS: 17000; 99203 ==

== ENCOUNTER → 2023-01-29 12:41 | Outpatient (BNVA) | payer MEDICARE, OTHER, SELFPAY | PROVIDERS: PCP Electrodiagnostic Medicine; Visit Provider Internal Medicine Cardiovascular Disease | DX: R06.02 Shortness of breath (principal); I10 Essential (primary) hypertension; Z79.899 Other long term (current) drug therapy | CPT/HCPCS: 36415; 80048; 83880; 99214 ==

== ENCOUNTER → 2023-02-12 08:11 | Outpatient (BNVA) | payer MEDICARE, OTHER, SELFPAY | PROVIDERS: PCP Electrodiagnostic Medicine; Visit Provider Dermatology | DX: D48.5 Neoplasm of uncertain behavior of skin (principal) | CPT/HCPCS: 11104 ==